=== PATIENT | female | born 1995 | race Caucasian/White ===

== ENCOUNTER 2017-08-13 12:08 | Emergency (ER) | payer SELFPAY ==
--- NOTE | 2017-08-13 12:36 | ER ---
Nurse's Notes [facility] Name: Karen Castle Age: 22 yrs Sex: Female : 1995 Arrival Date: 08/13/2017 Time: 12:10 Bed 9 Private MD: Diagnosis: Asthma;Bronchitis, not specified as acute or chronic Presentation: 08/13 12:15 Presenting complaint: Patient states: I feel congested, and the wheezing clears when i tw2 cough but i feel like i cant take a good breath and i feel sob, i have sinus congestion and pain. Transition of care: patient was not received from another setting of care. Onset of symptoms was August 13, 2017. Initial Sepsis Screen: Does the patient meet any 2 criteria? No. Patient's initial sepsis screen is negative. Does the patient have a suspected source of infection? No. Patient's initial sepsis screen is negative. Care prior to arrival: None. 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 - Social history:: Smoking status: Patient/guardian denies using tobacco. - Family history:: not pertinent. - Hospitalizations: : No recent hospitalization is reported. Screenin:28 Abuse screen: Denies threats or abuse. Denies injuries from another. Nutritional iw screening: No deficits noted. Tuberculosis screening: No symptoms or risk factors identified. Fall Risk. Assessment: 12:27 General: Appears in no apparent distress. Behavior is calm, cooperative. Pain: Denies iw pain. Neuro: Level of Consciousness is awake, alert, obeys commands, Oriented to person, place, time, situation, Moves all extremities. Full function. Cardiovascular: Rhythm is regular. Respiratory: Reports cough that is Airway is patent Respiratory effort is even, unlabored, Breath sounds are clear bilaterally. Derm: Skin is pink, warm \T\ dry. normal. Musculoskeletal: Range of motion: intact in all extremities. 12:29 Reassessment: pt states she ran out of her albuterol nebulizer and pro-air inhaler iw yesterday, needs refill, has not set up primary doctor in area. Vital Signs: 12:16 BP 118 / 78; Pulse 79; Resp 18; Temp 98.0(O); Pulse Ox 99% on R/A; Weight 77.11 kg (R); tw2 Height 5 ft. 3 in. (160.02 cm); Pain 0/10; 12:16 Body Mass Index 30.11 (77.11 kg, 160.02 cm) tw2 ED Course: 12:10 Patient arrived in ED. rg4 12:16 Triage completed. tw2 12:16 Arm band placed on. tw2 12:23 Yenni Manzano, [place] is Primary Nurse. iw 12:28 Andrea Mejia MD is Attending Physician. rn 12:28 Patient has correct armband on for positive identification. iw 12:29 No provider procedures requiring assistance completed. Patient did not have IV access iw during this emergency room visit. Administered Medications: No medications were administered Outcome: 12:36 Discharge ordered by . rn 12:50 Patient left the ED. iw Signatures: Yenni Manzano, RN RN iw Andrea Mejia MD MD rn Wise, Tara, RN RN tw2 Nayely Honeycutt rg4 Corrections: (The following items were deleted from the chart) 12:28 12:27 Musculoskeletal: Range of motion: limited in all extremities, iw iw
--- NOTE | 2017-08-13 12:36 | EDPHYS ---
Physician Documentation [facility] Name: Karen Castle Age: 22 yrs Sex: Female : 1995 Arrival Date: 08/13/2017 Time: 12:10 Bed 9 Private MD: ED Physician Andrea Mejia HPI: 08/13 12:33 This 22 yrs old Female presents to ER via Ambulatory with complaints of rn Breathing Difficulty. 12:33 The patient has shortness of breath at rest, with light activity. Onset: The rn symptoms/episode began/occurred 3 day(s) ago. Duration: The symptoms are intermittent. Associated signs and symptoms: Pertinent positives: non-productive cough, Pertinent negatives: fever, hemoptysis, loss of consciousness. Severity of symptoms: At their worst the symptoms were moderate in the emergency department the symptoms have improved. The patient has experienced similar episodes in the past. Reports just moved here, no PCP, + hx of asthma, + cough and sob, ran out of nebulizer medication and inhaler, helped a little but not gone, worse with exertion, no chest pain. . 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 - Social history:: Smoking status: Patient/guardian denies using tobacco. - Family history:: not pertinent. - Hospitalizations: : No recent hospitalization is reported. ROS: 12:33 Constitutional: Negative for fever, chills, and weight loss, Eyes: Negative for injury, rn pain, redness, and discharge, Neck: Negative for injury, pain, and swelling, Cardiovascular: Negative for chest pain, palpitations, and edema, Respiratory: Negative for pleuritic chest pain Abdomen/GI: Negative for abdominal pain, nausea, vomiting, diarrhea, and constipation, Back: Negative for injury and pain, MS/Extremity: Negative for injury and deformity, Skin: Negative for injury, rash, and discoloration, Neuro: Negative for headache, weakness, numbness, tingling, and seizure. Exam: 12:33 Constitutional: This is a well developed, well nourished patient who is awake, alert, rn and in no acute distress. Head/Face: Normocephalic, atraumatic. Eyes: Pupils equal round and reactive to light, extra-ocular motions intact. Lids and lashes normal. Conjunctiva and sclera are non-icteric and not injected. Cornea within normal limits. Periorbital areas with no swelling, redness, or edema. ENT: No stridor. Neck: Trachea midline, no thyromegaly or masses palpated, and no cervical lymphadenopathy. Supple, full range of motion without nuchal rigidity, or vertebral point tenderness. No Meningismus. Cardiovascular: Regular rate and rhythm with a normal S1 and S2. No gallops, murmurs, or rubs. Normal PMI, no JVD. No pulse deficits. Respiratory: Mild tachypnea, faint exp wheezing, speaking full sentences. Abdomen/GI: Soft, non-tender, with normal bowel sounds. No distension or tympany. No guarding or rebound. No evidence of tenderness throughout. Back: No spinal tenderness. No costovertebral tenderness. Full range of motion. MS/ Extremity: Pulses equal, no cyanosis. Neurovascular intact. Full, normal range of motion. Equal circumference. Neuro: Awake and alert, GCS 15, oriented to person, place, time, and situation. Cranial nerves II-XII grossly intact. Motor strength 5/5 in all extremities. Sensory grossly intact. Cerebellar exam normal. Normal gait. Vital Signs: 12:16 BP 118 / 78; Pulse 79; Resp 18; Temp 98.0(O); Pulse Ox 99% on R/A; Weight 77.11 kg (R); tw2 Height 5 ft. 3 in. (160.02 cm); Pain 0/10; 12:16 Body Mass Index 30.11 (77.11 kg, 160.02 cm) tw2 MDM: 12:28 Patient medically screened. rn 12:33 Differential diagnosis: asthma, Bronchitis. Data reviewed: vital signs, nurses notes, rn and as a result, I will discharge patient. Counseling: I had a detailed discussion with the patient and/or guardian regarding: the historical points, exam findings, and any diagnostic results supporting the discharge/admit diagnosis, the need for outpatient follow up, to return to the emergency department if symptoms worsen or persist or if there are any questions or concerns that arise at home. Special discussion: I discussed with the patient/guardian in detail that at this point there is no indication for admission to the hospital. It is understood, however, that if the symptoms persist or worsen the patient needs to return immediately for re-evaluation. Administered Medications: No medications were administered Disposition: 08/13/17 12:36 Discharged to Home. Impression: Asthma, Bronchitis, not specified as acute or chronic. - Condition is Stable. - Discharge Instructions: Acute Bronchitis, Asthma, Acute Bronchospasm. - Prescriptions for Prednisone 20 mg Oral Tablet - take 3 tablet by ORAL route once daily for 5 days; 15 tablet. Albuterol Sulfate 2.5 mg /3 mL (0.083 %) Inhalation Solution for Nebulization - inhale 1 unit by NEBULIZATION route every 8 hours As needed; 1 box. Zithromax Z- Pato 250 mg Oral Tablet - take 1 tablet by ORAL route as directed for 5 days Day 1 - take two (2) tablets one time. Day 2, 3, 4 , 5 take one (1) tablet once daily.; 6 tablet. Albuterol Sulfate 90 mcg/actuation - inhale 1-2 puff by INHALATION route every 4-6 hours; 1 Inhaler. - Medication Reconciliation Form, Thank You Letter, Antibiotic Education, Prescription Opioid Use form. - Follow up: Private Physician; When: As needed; Reason: Recheck today's complaints, Re-evaluation by your physician. - Problem is new. - Symptoms have improved. Signatures: Yenni Manzano RN RN iw Andrea Mejia MD MD rn Wise, Tara, RN RN tw2 Corrections: (The following items were deleted from the chart) 12:35 12:33 Constitutional: This is a well developed, well nourished patient who is awake, rn alert, and in no acute distress. Head/Face: Normocephalic, atraumatic. Eyes: Pupils equal round and reactive to light, extra-ocular motions intact. Lids and lashes normal. Conjunctiva and sclera are non-icteric and not injected. Cornea within normal limits. Periorbital areas with no swelling, redness, or edema. Neck: Trachea midline, no thyromegaly or masses palpated, and no cervical lymphadenopathy. Supple, full range of motion without nuchal rigidity, or vertebral point tenderness. No Meningismus. Cardiovascular: Regular rate and rhythm with a normal S1 and S2. No gallops, murmurs, or rubs. Normal PMI, no JVD. No pulse deficits. Respiratory: Mild tachypnea, faint exp wheezing, speaking full sentences. Abdomen/GI: Soft, non-tender, with normal bowel sounds. No distension or tympany. No guarding or rebound. No evidence of tenderness throughout. Back: No spinal tenderness. No costovertebral tenderness. Full range of motion. MS/ Extremity: Pulses equal, no cyanosis. Neurovascular intact. Full, normal range of motion. Equal circumference. Neuro: Awake and alert, GCS 15, oriented to person, place, time, and situation. Cranial nerves II-XII grossly intact. Motor strength 5/5 in all extremities. Sensory grossly intact. Cerebellar exam normal. Normal gait. rn
== END 2017-08-13 12:50 | disposition home or self-care (01) ==
LOC: ER 12:08
DX: J45.998 Other asthma (principal)
CPT/HCPCS: 99281

== ENCOUNTER 2017-09-19 12:38 | Emergency (ER) | payer SELFPAY ==
[2017-09-19] MEDS ORDERED: ALBUTEROL 2.5 MG/3 ML NEB SOL ONE (13:32)
[2017-09-19] MEDS ORDERED: IPRATROPIUM BROM 0.5MG/2.5ML ONE (13:32)
[2017-09-19] MEDS ORDERED: LIDOCAINE 1% MPF 2 ML AMPULE ONE (13:32)
[2017-09-19] MEDS ORDERED: TRIAMCINOLONE ACETON 40 MG/ML VIAL ONE (13:32)
--- NOTE | 2017-09-19 13:32 | ER ---
Nurse's Notes [facility] Name: Karen Castle Age: 22 yrs Sex: Female : 1995 Arrival Date: 09/19/2017 Time: 12:40 Bed 30 Private MD: None, None Diagnosis: Acute maxillary sinusitis;Asthma Presentation: 09/19 12:51 Presenting complaint: Patient states: "I have chronic asthma and I have just not been aj able to manage it well. No matter how many times I use my inhalers I feel like I am just not taking deep enough breaths." Patient is not tachypneic in triage, clear speaking voice. Breath sounds are clear. Transition of care: patient was not received from another setting of care. Onset of symptoms was September 19, 2017. Care prior to arrival: None. 12:51 Method Of Arrival: Ambulatory aj 12:51 Acuity: MOHIT 4 aj 15:00 Risk Assessment: Do you want to hurt yourself or someone else? Patient reports no lk1 desire to harm self or others. Initial Sepsis Screen: Does the patient meet any 2 criteria? No. Patient's initial sepsis screen is negative. Does the patient have a suspected source of infection? No. Patient's initial sepsis screen is negative. Triage Assessment: 12:53 General: Appears in no apparent distress. comfortable, Behavior is calm, cooperative, aj appropriate for age. Pain: Denies pain. Respiratory: Reports shortness of breath Airway is patent Respiratory effort is even, unlabored, Respiratory pattern is regular, symmetrical, Onset: The symptoms/episode began/occurred gradually, the patient has mild shortness of breath. Derm: Skin is intact, is healthy with good turgor, Skin is pink, warm \\T\\ dry. normal. 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 - Social history:: Smoking status: Patient/guardian denies using tobacco. - Family history:: not pertinent. - Ebola Screening: : No symptoms or risks identified at this time. - Hospitalizations: : No recent hospitalization is reported. - History obtained from: mother. Screenin:58 Abuse screen: Denies threats or abuse. Denies injuries from another. Nutritional lk1 screening: No deficits noted. Tuberculosis screening: No symptoms or risk factors identified. Fall Risk None identified. Assessment: 14:00 General: Appears in no apparent distress. Behavior is calm, cooperative, appropriate lk1 for age. Pain: Denies pain. Neuro: Level of Consciousness is awake, alert, obeys commands, Oriented to person, place, time, situation. Cardiovascular: Heart tones S1 S2 present Capillary refill is brisk Patient's skin is warm and dry. Rhythm is regular. Respiratory: Airway is patent Respiratory effort is even, unlabored, Respiratory pattern is regular, symmetrical, Breath sounds are clear bilaterally. Breath sounds are diminished in right lower lobe. GI: No signs and/or symptoms were reported involving the gastrointestinal system. : No signs and/or symptoms were reported regarding the genitourinary system. EENT: No signs and/or symptoms were reported regarding the EENT system. Derm: No signs and/or symptoms reported regarding the dermatologic system. Musculoskeletal: No signs and/or symptoms reported regarding the musculoskeletal system. Vital Signs: 12:53 BP 130 / 90; Pulse 79; Resp 16; Temp 97.6; Pulse Ox 100% on R/A; Weight 77.11 kg; aj Height 5 ft. 3 in. (160.02 cm); 14:18 BP 111 / 89; Pulse 84; Resp 16; Pulse Ox 100% on Nebulizer Mask; lk1 12:53 Body Mass Index 30.11 (77.11 kg, 160.02 cm) ED Course: 12:40 Patient arrived in ED. mr 12:40 None, None is Private Physician. mr 12:52 Triage completed. aj 12:53 Arm band placed on left wrist. Patient placed in an exam room. aj 13:12 Veronica Solis, [place] is Primary Nurse. lk1 13:12 Rhonda Gilbert FNP is PHCP. ka 13:12 Bud Mcpherson MD is Attending Physician. ka 14:58 Patient has correct armband on for positive identification. Bed in low position. Call lk1 light in reach. 14:58 No provider procedures requiring assistance completed. Patient did not have IV access lk1 during this emergency room visit. Administered Medications: 14:10 Drug: DuoNeb (3:1) (2.5 mg - 0.5 mg) 3 ml Route: Nebulizer; lk1 14:55 Follow up: Response: No adverse reaction; Marked relief of symptoms lk1 14:12 Drug: Rocephin (cefTRIAXone) 1 grams Route: IM; Site: left gluteus; lk1 14:56 Follow up: Response: No adverse reaction; Marked relief of symptoms lk1 14:14 Drug: Kenalog 40 mg Route: IM; Site: right gluteus; lk1 14:55 Follow up: Response: No adverse reaction; Marked relief of symptoms lk1 Outcome: 13:31 Discharge ordered by . niko 14:59 Discharged to home ambulatory, with family. lk1 14:59 Condition: improved 14:59 Discharge instructions given to patient, family, Instructed on discharge instructions, follow up and referral plans. medication usage, safety practices, Demonstrated understanding of instructions, follow-up care, medications, Prescriptions given X 2. 15:01 Patient left the ED. lk1 Signatures: Josie Thompson, RN RN Rhonda Romano, Margi Brumfield Leah, RN RN lk1
--- NOTE | 2017-09-19 13:32 | EDPHYS ---
Physician Documentation [facility] Name: Karen Castle Age: 22 yrs Sex: Female : 1995 Arrival Date: 09/19/2017 Time: 12:40 Bed 30 Private MD: None, None ED Physician Bud Mcpherson HPI: 09/19 13:25 This 22 yrs old Female presents to ER via Ambulatory with complaints of kav Shortness Of Breath. 13:25 The patient presents with congestion. Onset: The symptoms/episode began/occurred 5 kav day(s) ago. Modifying factors: The symptoms are alleviated by nothing. the symptoms are aggravated by nothing. Associated signs and symptoms: The patient has no apparent associated signs or symptoms, Loss of consciousness: the patient experienced no loss of consciousness, Pertinent positives:. Severity of symptoms: At their worst the symptoms were moderate just prior to arrival. The patient has experienced a previous episode, approximately 1 years ago. The patient has not recently seen a physician. 13:27 pt presents with chief c/o acute onset of nasal congestion and sob. pmhx: asthma. home kav nebulizer and has been using albuterol nebs at home. pressure in maxillary sinus. reports nasal discharge with thick purulent drainage. 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 - Social history:: Smoking status: Patient/guardian denies using tobacco. - Family history:: not pertinent. - Ebola Screening: : No symptoms or risks identified at this time. - Hospitalizations: : No recent hospitalization is reported. - History obtained from: mother. ROS: 13:28 Constitutional: Negative for fever, chills, and weight loss, Eyes: Negative for injury, kav pain, redness, and discharge, Neck: Negative for injury, pain, and swelling, Cardiovascular: Negative for chest pain, palpitations, and edema, Abdomen/GI: Negative for abdominal pain, nausea, vomiting, diarrhea, and constipation, Back: Negative for injury and pain, : Negative for injury, bleeding, discharge, and swelling, MS/Extremity: Negative for injury and deformity, Skin: Negative for injury, rash, and discoloration, Neuro: Negative for headache, weakness, numbness, tingling, and seizure, Psych: Negative for depression, anxiety, suicide ideation, homicidal ideation, and hallucinations, Allergy/Immunology: Negative for hives, rash, and allergies, Endocrine: Negative for neck swelling, polydipsia, polyuria, polyphagia, and marked weight changes, Hematologic/Lymphatic: Negative for swollen nodes, abnormal bleeding, and unusual bruising. 13:28 ENT: Positive for nasal discharge, sinus congestion, sinus pain, Negative for drainage from ear(s), ear pain, tinnitus, rhinorrhea, sore throat, difficulty swallowing, difficulty handling secretions, hoarseness. 13:28 Respiratory: Positive for shortness of breath, on exertion. kav Exam: 13:28 Constitutional: This is a well developed, well nourished patient who is awake, alert, kav and in no acute distress. Head/Face: Normocephalic, atraumatic. 13:28 Eyes: Pupils equal round and reactive to light, extra-ocular motions intact. Lids and kav lashes normal. Conjunctiva and sclera are non-icteric and not injected. Cornea within normal limits. Periorbital areas with no swelling, redness, or edema. Neck: Trachea midline, no thyromegaly or masses palpated, and no cervical lymphadenopathy. Supple, full range of motion without nuchal rigidity, or vertebral point tenderness. No Meningismus. Chest/axilla: Normal chest wall appearance and motion. Nontender with no deformity. No lesions are appreciated. Cardiovascular: Regular rate and rhythm with a normal S1 and S2. No gallops, murmurs, or rubs. Normal PMI, no JVD. No pulse deficits. Abdomen/GI: Soft, non-tender, with normal bowel sounds. No distension or tympany. No guarding or rebound. No evidence of tenderness throughout. Back: No spinal tenderness. No costovertebral tenderness. Full range of motion. Skin: Warm, dry with normal turgor. Normal color with no rashes, no lesions, and no evidence of cellulitis. MS/ Extremity: Pulses equal, no cyanosis. Neurovascular intact. Full, normal range of motion. Neuro: Awake and alert, GCS 15, oriented to person, place, time, and situation. Cranial nerves II-XII grossly intact. Motor strength 5/5 in all extremities. Sensory grossly intact. Cerebellar exam normal. Normal gait. Psych: Awake, alert, with orientation to person, place and time. Behavior, mood, and affect are within normal limits. 13:28 ENT: Nose: Turbinates: are swollen bilaterally. 13:28 Respiratory: the patient does not display signs of respiratory distress, Respirations: normal, no acute changes, Breath sounds: decreased breath sounds, that are mild, are located in both bases. Vital Signs: 12:53 BP 130 / 90; Pulse 79; Resp 16; Temp 97.6; Pulse Ox 100% on R/A; Weight 77.11 kg; aj Height 5 ft. 3 in. (160.02 cm); 14:18 BP 111 / 89; Pulse 84; Resp 16; Pulse Ox 100% on Nebulizer Mask; lk1 12:53 Body Mass Index 30.11 (77.11 kg, 160.02 cm) MDM: 13:12 Medical screening is not applicable. [facility] 13:28 Data reviewed: vital signs, nurses notes. ka Administered Medications: 14:10 Drug: DuoNeb (3:1) (2.5 mg - 0.5 mg) 3 ml Route: Nebulizer; lk1 14:55 Follow up: Response: No adverse reaction; Marked relief of symptoms lk1 14:12 Drug: Rocephin (cefTRIAXone) 1 grams Route: IM; Site: left gluteus; lk1 14:56 Follow up: Response: No adverse reaction; Marked relief of symptoms lk1 14:14 Drug: Kenalog 40 mg Route: IM; Site: right gluteus; lk1 14:55 Follow up: Response: No adverse reaction; Marked relief of symptoms lk1 Disposition: 22:10 Co-signature as Attending Physician, Bud Mcpherson MD I agree with the assessment and kdr plan of care. Disposition: 09/19/17 13:31 Discharged to Home. Impression: Acute maxillary sinusitis, Asthma. - Condition is Stable. - Discharge Instructions: Sinusitis, Adult. - Prescriptions for Ventolin HFA 90 mcg/actuation Inhalation HFA aerosol inhaler - inhale 1 puff by INHALATION route every 4 hours; 1 unit. Albuterol Sulfate 2.5 mg /3 mL (0.083 %) Inhalation Solution for Nebulization - inhale 1 unit by NEBULIZATION route every 8 hours As needed; 1 box. - Medication Reconciliation Form, Thank You Letter, Antibiotic Education, Prescription Opioid Use form. - Follow up: Private Physician; When: 2 - 3 days; Reason: If symptoms return, Recheck today's complaints, Continuance of care, Re-evaluation by your physician. - Problem is new. - Symptoms have improved. - Notes: zyrtec d as directed afrin nasal spray as directed x 3 days only Signatures: Josie Thompson, RN RN Bud Trejo MD MD kdr Vern, Katherine, FNP FNP kav Kluge, Leah, RN RN lk1 Corrections: (The following items were deleted from the chart) 15:01 13:31 09/19/2017 13:31 Discharged to Home. Impression: Acute maxillary sinusitis; lk1 Asthma. Condition is Stable. Forms are Medication Reconciliation Form, Thank You Letter, Antibiotic Education, Prescription Opioid Use. Follow up: Private Physician; When: 2 - 3 days; Reason: If symptoms return, Recheck today's complaints, Continuance of care, Re-evaluation by your physician. Problem is new. Symptoms have improved. niko
[2017-09-19] MEDS ORDERED: CEFTRIAXONE 1000 MG/VIAL ONE (13:33)
== END 2017-09-19 15:01 | disposition home or self-care (01) ==
LOC: ER 12:38
DX: J01.00 Acute maxillary sinusitis, unspecified (principal); J45.909 Unspecified asthma, uncomplicated
CPT/HCPCS: 94640; 96372; 99284; J2001; J3301

== ENCOUNTER 2017-10-11 15:03 | Emergency (ER) | payer SELFPAY ==
[2017-10-11 15:59] LABS: Absolute Lymphocytes (CBC) 0.9 K/uL (0.7-4.9); Absolute Monocytes 0.7 K/uL (0.1-1.3); Absolute Neutrophil 12.6 K/uL (1.8-8.0); Basophils % 0.1 % (0-1.3); Eosinophils % 0.3 % (0-4.4); Hematocrit 46.1 % (36.0-45.0); Lymphocytes % 6.2 % (15.3-44.8); MCH 30.9 pg (27.0-35.0); MPV 8.8 fL (7.6-11.3); Monocytes % 4.6 % (3.3-12.3); RBC Red Blood Cell Count 4.96 M/uL (3.86-4.86)
[2017-10-11] MEDS ORDERED: FAMOTIDINE 20 MG/2 ML VIAL IV ONE (16:03)
[2017-10-11] MEDS ORDERED: ONDANSETRON 4 MG/2 ML VIAL ONE (16:03)
[2017-10-11] MEDS ORDERED: NA CHLORIDE 0.9% 2,000 ML ONE (16:03)
[2017-10-11] MEDS ORDERED: NA CHLORIDE 0.9% 250 ML ONE (16:18)
[2017-10-11 16:22] LABS: Blood Morphology Comment NOT SEEN (NOT SEEN); Platelet Estimate ADEQ; Urine White Blood Cell Casts OK
[2017-10-11 16:25] LABS: ALT/SGPT 17 U/L (12-78); AST/SGOT 15 U/L (15-37); Albumin 3.7 g/dL (3.4-5.0); Alkaline Phosphatase 71 U/L (45-117); Amylase Level 27 U/L (25-115); BUN Blood Urea Nitrogen 12 mg/dL (7-18); Bicarbonate 26 mmol/L (21-32); Bilirubin Direct 0.2 mg/dL (0-0.2); Bilirubin Total 0.7 mg/dL (0.2-1.0); Glucose Level 103 mg/dL (74-106); Lipase 54 U/L (73-393); Protein, Total 8.1 g/dL (6.4-8.2); Sodium Level 134 mmol/L (136-145)
[2017-10-11] MEDS ORDERED: POTASSIUM 25 MEQ EFFERV TAB ONE (17:04)
[2017-10-11 17:22] LABS: Urine Bacteria >50 /HPF (<20); Urine Culture Reflex Order REFLEXED; Urine RBC <5 /HPF (NONE SEEN)
--- NOTE | 2017-10-11 17:30 | EKG ---
Test Date: 2017-10-11 Test Time: 16:37:41 Cerner Analyst: ANIL MEASUREMENT RESULTS: Intervals: Rate: 85 RI: 132 QRSD: 80 QT: 352 QTc: 418 [place]: P: 56 RI: 132 QRS: 0 T: -5 INTERPRETIVE STATEMENTS: Normal sinus rhythm Nonspecific T wave abnormality Abnormal ECG No previous ECG available for comparison Electronically Signed On 10-11-17 17:30:01 CDT by Braayn Lara
[2017-10-11 17:33] LABS: Urine Blood TRACE (NEG); Urine Glucose NEGATIVE (NEG); Urine Protein TRACE (NEG); Urine Specific Gravity 1.025 (1.005-1.030); Urine pH 5.5 (5.0-7.0)
[2017-10-11] MEDS ORDERED: ACETAMINOPHEN 500 MG TAB ONE (18:05)
[2017-10-11] MEDS ORDERED: METOCLOPRAMIDE 10 MG/2mL INJ ONE (18:05)
[2017-10-11] MEDS ORDERED: CEFTRIAXONE/SWI 1gm 1 GM/10 ML SYR ONE (18:06)
--- NOTE | 2017-10-11 18:21 | ER ---
Nurse's Notes [facility] Name: Karen Castle Age: 22 yrs Sex: Female : 1995 Arrival Date: 10/11/2017 Time: 15:05 Bed 23 Private MD: None, None Diagnosis: Nausea and vomiting;Diarrhea, unspecified;Urinary tract infection, site not specified Presentation: 10/11 15:07 Presenting complaint: Patient states: vomiting/diarrhea x 1 day. Unable to keep fluids sv down. Transition of care: patient was not received from another setting of care. Onset of symptoms was October 10, 2017. Risk Assessment: Do you want to hurt yourself or someone else? Patient reports no desire to harm self or others. Care prior to arrival: None. 15:07 Method Of Arrival: Ambulatory sv 15:07 Acuity: MOHIT 3 sv 19:23 Initial Sepsis Screen: Does the patient meet any 2 criteria? No. Patient's initial tl3 sepsis screen is negative. Does the patient have a suspected source of infection? No. Patient's initial sepsis screen is negative. Triage Assessment: 19:23 GI: Reports vomiting. 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 - Social history:: Smoking status: Patient/guardian denies using tobacco. - Ebola Screening: : No symptoms or risks identified at this time. Screenin:36 Abuse screen: Denies threats or abuse. Nutritional screening: No deficits noted. tl3 Tuberculosis screening: No symptoms or risk factors identified. Fall Risk None identified. Assessment: 15:36 General: Appears uncomfortable, slender, well groomed, well developed, well nourished, tl3 Behavior is calm, cooperative, appropriate for age. Pain: Complains of pain in abdomen. Neuro: Level of Consciousness is awake, alert, obeys commands, Oriented to person, place, time, situation, Appropriate for age. Cardiovascular: Patient's skin is warm and dry. Respiratory: Airway is patent Respiratory effort is even, unlabored, Respiratory pattern is regular, symmetrical. GI: Abdomen is round. : No signs and/or symptoms were reported regarding the genitourinary system. EENT: No signs and/or symptoms were reported regarding the EENT system. Derm: No signs and/or symptoms reported regarding the dermatologic system. Musculoskeletal: No signs and/or symptoms reported regarding the musculoskeletal system. 16:40 Reassessment: No changes from previously documented assessment. Patient and/or family tl3 updated on plan of care and expected duration. Pain level reassessed. Patient is alert, oriented x 3, equal unlabored respirations, skin warm/dry/pink. 18:00 Reassessment: Patient appears in no apparent distress at this time. No changes from tl3 previously documented assessment. Patient and/or family updated on plan of care and expected duration. Pain level reassessed. Patient is alert, oriented x 3, equal unlabored respirations, skin warm/dry/pink. pt fluids to infuse prior to discharge. 19:17 Reassessment: No changes from previously documented assessment. Patient and/or family tl3 updated on plan of care and expected duration. Pain level reassessed. Patient is alert, oriented x 3, equal unlabored respirations, skin warm/dry/pink. Vital Signs: 15:08 BP 122 / 105; Pulse 130; Resp 18; Temp 99.7; Pulse Ox 97% ; Weight 77.11 kg; Height 5 sv ft. 3 in. (160.02 cm); Pain 6/10; 15:36 BP 111 / 72; Pulse 112; Resp 16; Pulse Ox 96% ; tl3 18:00 BP 118 / 76; Pulse 103; Resp 16; Pulse Ox 100% ; tl3 19:17 BP 105 / 67; Pulse 86; Resp 18; Pulse Ox 99% ; tl3 15:08 Body Mass Index 30.11 (77.11 kg, 160.02 cm) sv ED Course: 15:05 Patient arrived in ED. mr 15:05 None, None is Private Physician. mr 15:07 Triage completed. sv 15:09 Arm band placed on right wrist. sv 15:19 Jerald Restrepo PA is PHCP. cp 15:19 Andrea Mejia MD is Attending Physician. cp 15:19 Roxana Juan, RN is Primary Nurse. tl3 15:36 Patient has correct armband on for positive identification. Placed in gown. Bed in low tl3 position. Call light in reach. Side rails up X 1. Adult w/ patient. Pulse ox on. NIBP on. 15:36 No provider procedures requiring assistance completed. Inserted saline lock: 22 gauge tl3 in right antecubital area, using aseptic technique. Blood collected. 15:54 Initial lab(s) drawn, by ED staff, sent to lab. dh3 16:43 EKG done, by certified pharmacy technician. reviewed by Jerald SPRING. 3 17:12 Urine collected: clean catch specimen, benjamín colored. dh3 19:17 IV discontinued, intact, bleeding controlled, No redness/swelling at site. Pressure tl3 dressing applied. Administered Medications: 16:28 Drug: NS 0.9% 1000 ml Route: IV; Rate: 125 ml/hr; Site: right antecubital; Delivery: tl3 Primary tubing; 19:19 Follow up: IV Status: Completed infusion; IV Intake: 300ml tl3 16:29 Drug: Zofran 4 mg Route: IVP; Site: right antecubital; tl3 16:58 Follow up: Response: No adverse reaction; Nausea is decreased tl3 16:29 Drug: Pepcid 20 mg Route: IVP; Site: right antecubital; tl3 16:58 Follow up: Response: No adverse reaction tl3 16:29 Drug: NS 0.9% 1000 ml Route: IV; Rate: 1 bolus; Site: right antecubital; tl3 19:23 Follow up: IV Status: Completed infusion; IV Intake: 1000ml tl3 17:07 CANCELLED (Duplicate Order): Potassium Chloride 40 mEq PO once tl3 17:07 Drug: Potassium Effervescent Tablet 50 mEq Route: PO; tl3 19:19 Follow up: Response: No adverse reaction tl3 18:12 Drug: Reglan 10 mg Route: IVP; Infused Over: 2 mins; Site: right antecubital; tl3 19:18 Follow up: Response: No adverse reaction tl3 18:12 Drug: Rocephin - (cefTRIAXone) 1 grams Route: IVPB; Infused Over: 5 mins; Site: right tl3 antecubital; Delivery: Primary tubing; 19:18 Follow up: IV Status: Completed infusion; IV Intake: 20ml tl3 18:13 Drug: Tylenol 1000 mg Route: PO; tl3 19:21 Follow up: Response: Pain is decreased tl3 18:13 Drug: NS 0.9% 1000 ml Route: IV; Rate: 1 bolus; Site: right antecubital; Delivery: tl3 Primary tubing; 19:18 Follow up: IV Status: Completed infusion; IV Intake: 1000ml tl3 Intake: 19:18 IV: 20ml; Total: 20ml. tl3 19:18 IV: 1000ml; Total: 1020ml. tl3 19:19 IV: 300ml; Total: 1320ml. tl3 19:23 IV: 1000ml; Total: 2320ml. tl3 Outcome: 18:20 Discharge ordered by . karla 19:17 Discharged to home tl3 19:17 Condition: good 19:17 Discharge instructions given to patient, family, Instructed on discharge instructions, follow up and referral plans. medication usage, Demonstrated understanding of instructions, follow-up care, medications, Prescriptions given X 2. 19:22 Patient left the ED. tl3 Signatures: Roxane Crow, RN RN Margi Rodríguez mr Jerald Restrepo, CLEMENTINE PA Janna Heath 3 Roxana Juan RN RN 3 Megan Mendoza 3 Corrections: (The following items were deleted from the chart) 15:10 15:08 BP 122 / 105; Pulse 130bpm; Resp 18bpm; Pulse Ox 97%; 77.11 kg; Height 5 ft. 3 sv in.; BMI: 30.1; Pain 6/10; sv 17:06 17:06 Potassium Chloride 40 mEq PO tl3 tl3 19:17 18:00 Reassessment: Patient appears in no apparent distress at this time. No changes tl3 from previously documented assessment. Patient and/or family updated on plan of care and expected duration. Pain level reassessed. Patient is alert, oriented x 3, equal unlabored respirations, skin warm/dry/pink. tl3
--- NOTE | 2017-10-11 18:21 | EDPHYS ---
Physician Documentation [facility] Name: Karen Castle Age: 22 yrs Sex: Female : 1995 Arrival Date: 10/11/2017 Time: 15:05 Bed 23 Private MD: None, None ED Physician Andrea Mejia HPI: 10/11 15:50 This 22 yrs old Female presents to ER via Ambulatory with complaints of cp Vomiting/Diarrhea. 15:50 The patient presents to the emergency department with nausea, that is moderate, cp vomiting, that is continuous, diarrhea, that is continuous. 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 - Social history:: Smoking status: Patient/guardian denies using tobacco. - Ebola Screening: : No symptoms or risks identified at this time. ROS: 16:00 Constitutional: Positive for poor PO intake, Negative for body aches, chills, fever. cp 16:00 Eyes: Negative for injury, pain, redness, and discharge. cp 16:00 ENT: Negative for drainage from ear(s), ear pain, sore throat, difficulty swallowing, difficulty handling secretions. 16:00 Cardiovascular: Negative for chest pain, edema, palpitations. 16:00 Respiratory: Negative for cough, shortness of breath, wheezing. 16:00 Abdomen/GI: Positive for abdominal pain, nausea, vomiting, diarrhea, Negative for constipation, black/tarry stool, rectal bleeding. 16:00 Back: Negative for pain at rest, pain with movement, radiated pain. 16:00 : Negative for flank pain. 16:00 Skin: Negative for cellulitis, rash. 16:00 Neuro: Negative for altered mental status, headache, weakness. 16:00 All other systems are negative. Exam: 16:05 Constitutional: The patient appears in no acute distress, alert, awake, cp non-diaphoretic, non-toxic, well developed, well nourished. 16:05 Head/Face: Normocephalic, atraumatic. Eyes: Pupils equal round and reactive to light, cp extra-ocular motions intact. Lids and lashes normal. Conjunctiva and sclera are non-icteric and not injected. Cornea within normal limits. Periorbital areas with no swelling, redness, or edema. ENT: Nares patent. No nasal discharge, no septal abnormalities noted. Tympanic membranes are normal and external auditory canals are clear. Oropharynx with no redness, swelling, or masses, exudates, or evidence of obstruction, uvula midline. Mucous membranes moist. Neck: Trachea midline, no thyromegaly or masses palpated, and no cervical lymphadenopathy. Supple, full range of motion without nuchal rigidity, or vertebral point tenderness. No Meningismus. Chest/axilla: Normal chest wall appearance and motion. Nontender with no deformity. No lesions are appreciated. 16:05 Cardiovascular: Rate: tachycardic, Rhythm: regular, Heart sounds: murmur, not appreciated, rub, not appreciated, gallop, not appreciated, Edema: is not appreciated, JVD: is not appreciated. 16:05 Respiratory: the patient does not display signs of respiratory distress, Respirations: normal, no use of accessory muscles, no retractions, no splinting, no tachypnea, labored breathing, is not present, Breath sounds: are clear throughout, no decreased breath sounds, no stridor, no wheezing. 16:05 Abdomen/GI: Inspection: abdomen appears normal, Bowel sounds: active, all quadrants, Palpation: soft, in all quadrants, mild abdominal tenderness, in all quadrants, rebound tenderness, is not appreciated, voluntary guarding, is not appreciated, involuntary guarding, is not appreciated. 16:05 Back: pain, is absent, ROM is normal. 16:05 Musculoskeletal/extremity: Exam is negative for calf tenderness, decreased range of motion, edema. 16:05 Skin: cellulitis, is not appreciated, no rash present. 16:05 Neuro: Orientation: to person, place \T\ time. Mentation: lucid, able to follow commands, Motor: moves all fours, strength is normal, Sensation: no obvious gross deficits. 16:45 ECG was reviewed by the Attending Physician. cp Vital Signs: 15:08 BP 122 / 105; Pulse 130; Resp 18; Temp 99.7; Pulse Ox 97% ; Weight 77.11 kg; Height 5 sv ft. 3 in. (160.02 cm); Pain 6/10; 15:36 BP 111 / 72; Pulse 112; Resp 16; Pulse Ox 96% ; tl3 18:00 BP 118 / 76; Pulse 103; Resp 16; Pulse Ox 100% ; tl3 19:17 BP 105 / 67; Pulse 86; Resp 18; Pulse Ox 99% ; tl3 15:08 Body Mass Index 30.11 (77.11 kg, 160.02 cm) sv MDM: 15:19 Patient medically screened. cp 18:18 Data reviewed: vital signs, nurses notes, lab test result(s), EKG, VSS. Vomiting cp resolved and patient tolerating po fluids. Will discharge to home for continued monitroing, and as a result, I will discharge patient. 10/11 15:44 Order name: Amylase, Serum; Complete Time: 16:28 cp 10/11 15:44 Order name: Basic Metabolic Panel; Complete Time: 16:28 cp 10/11 16:28 Interpretation: Normal except: NA 134; K 3.0. cp 10/11 15:44 Order name: CBC with Diff; Complete Time: 16:28 cp 10/11 16:07 Interpretation: Normal except: WBC 14.2; RBC 4.96; HGB 15.3; HCT 46.1; ROCK% 88.8; LYM% cp 6.2; NEUT A 12.6. 10/11 15:44 Order name: Creatinine for Radiology; Complete Time: 17:44 cp 10/11 15:44 Order name: Hepatic Function; Complete Time: 16:28 cp 10/11 16:29 Interpretation: Normal except: GLOB 4.4; A/G 0.8. cp 10/11 15:44 Order name: Lipase; Complete Time: 16:28 cp 10/11 16:28 Interpretation: LIP 54; Reviewed. cp 10/11 15:44 Order name: Urine Microscopic Only; Complete Time: 17:44 cp 10/11 17:45 Interpretation: Normal except: UBACT >50. cp 10/11 16:02 Order name: CBC Smear Scan; Complete Time: 16:28 EDMS 10/11 17:23 Order name: Urine Culture EDMS 10/11 17:29 Order name: Urine Dipstick--Ancillary (enter results); Complete Time: 17:44 bd 10/11 17:45 Interpretation: Normal except: UBLD TRACE. cp 10/11 17:29 Order name: Urine --Ancillary (enter results); Complete Time: 17:44 bd 10/11 15:44 Order name: Urine Test (obtain specimen); Complete Time: 17:13 cp 10/11 15:44 Order name: IV Saline Lock; Complete Time: 16:57 cp 10/11 15:44 Order name: Labs collected and sent; Complete Time: 16:57 cp 10/11 15:44 Order name: Urine Dipstick-Ancillary (obtain specimen); Complete Time: 17:13 cp 10/11 16:29 Order name: PO challenge; Complete Time: 17:06 cp 10/11 16:30 Order name: EKG; Complete Time: 16:30 cp 10/11 16:30 Order name: EKG - Nurse/Tech; Complete Time: 16:59 cp EC:45 Rate is 85 beats/min. Rhythm is regular. AK interval is normal. QRS interval is normal. cp QT interval is normal. No ST changes noted. Interpreted by me. Reviewed by me. Administered Medications: 16:28 Drug: NS 0.9% 1000 ml Route: IV; Rate: 125 ml/hr; Site: right antecubital; Delivery: tl3 Primary tubing; 19:19 Follow up: IV Status: Completed infusion; IV Intake: 300ml tl3 16:29 Drug: Zofran 4 mg Route: IVP; Site: right antecubital; tl3 16:58 Follow up: Response: No adverse reaction; Nausea is decreased tl3 16:29 Drug: Pepcid 20 mg Route: IVP; Site: right antecubital; tl3 16:58 Follow up: Response: No adverse reaction tl3 16:29 Drug: NS 0.9% 1000 ml Route: IV; Rate: 1 bolus; Site: right antecubital; tl3 19:23 Follow up: IV Status: Completed infusion; IV Intake: 1000ml tl3 17:07 CANCELLED (Duplicate Order): Potassium Chloride 40 mEq PO once tl3 17:07 Drug: Potassium Effervescent Tablet 50 mEq Route: PO; tl3 19:19 Follow up: Response: No adverse reaction tl3 18:12 Drug: Reglan 10 mg Route: IVP; Infused Over: 2 mins; Site: right antecubital; tl3 19:18 Follow up: Response: No adverse reaction tl3 18:12 Drug: Rocephin - (cefTRIAXone) 1 grams Route: IVPB; Infused Over: 5 mins; Site: right tl3 antecubital; Delivery: Primary tubing; 19:18 Follow up: IV Status: Completed infusion; IV Intake: 20ml tl3 18:13 Drug: Tylenol 1000 mg Route: PO; tl3 19:21 Follow up: Response: Pain is decreased tl3 18:13 Drug: NS 0.9% 1000 ml Route: IV; Rate: 1 bolus; Site: right antecubital; Delivery: tl3 Primary tubing; 19:18 Follow up: IV Status: Completed infusion; IV Intake: 1000ml tl3 Disposition: 10/11/17 18:20 Discharged to Home. Impression: Nausea and vomiting, Diarrhea, unspecified, Urinary tract infection, site not specified. - Condition is Stable. - Discharge Instructions: Food Choices to Help Relieve Diarrhea, Adult, Potassium Content of Foods, Nausea and Vomiting, Urinary Tract Infection. - Prescriptions for Augmentin 875- 125 mg Oral Tablet - take 1 tablet by ORAL route every 12 hours for 7 days; 14 tablet. Zofran 4 mg Oral Tablet - take 1 tablet by ORAL route every 12 hours As needed; 20 tablet. Potassium Chloride 10 mEq Oral Capsule, Sustained Release - take 1 tablet by ORAL route every 12 hours for 3 days; 6 tablet. - Medication Reconciliation Form, Thank You Letter, Antibiotic Education, Prescription Opioid Use form. - Follow up: Private Physician; When: 2 - 3 days; Reason: Recheck today's complaints. - Problem is new. - Symptoms have improved. Addendum: 10/14/2017 19:40 Co-signature as Attending Physician, Andrea Mejia MD. r n Signatures: Dispatcher [employer] Roxane Engle RN RN sv Nieto, Roman, MD MD rn Page, Corey, PA PA cp Lowrey, Tammy, RN RN tl3 Corrections: (The following items were deleted from the chart) 10/11 16:07 16:07 Normal except: WBC 14.2; RBC 4.96; HGB 15.3; HCT 46.1. cp cp 17:07 16:29 Potassium Chloride Liquid 40 mEq PO once ordered. cp tl3 17:07 17:06 Potassium Chloride Liquid 40 mEq PO once given. tl3 tl3 17:07 17:06 Potassium Chloride Liquid 40 mEq PO once ordered. tl3 tl3 19:22 18:20 10/11/2017 18:20 Discharged to Home. Impression: Nausea and vomiting; Diarrhea, tl3 unspecified; Urinary tract infection, site not specified. Condition is Stable. Forms are Medication Reconciliation Form, Thank You Letter, Antibiotic Education, Prescription Opioid Use. Follow up: Private Physician; When: 2 - 3 days; Reason: Recheck today's complaints. Problem is new. Symptoms have improved. cp
== END 2017-10-11 19:22 | disposition home or self-care (01) ==
LOC: ER 15:03
DX: N39.0 Urinary tract infection, site not specified (principal); R19.7 Diarrhea, unspecified; F32.9 Major depressive disorder, single episode, unspecified
CPT/HCPCS: 36415; 80048; 80076; 81003; 81015; 81025; 82150; 83690; 85025; 87086; 87088; 93005; 96361; 96365; 96375; 99284; J0696; J2405; J2765; J7030

== ENCOUNTER 2017-11-24 16:30 | Emergency (ER) | payer SELFPAY ==
--- NOTE | 2017-11-24 16:55 | EDPHYS ---
Physician Documentation [facility] Name: Karen Castle Age: 22 yrs Sex: Female : 1995 Arrival Date: 11/24/2017 Time: 16:32 Bed 23 Private MD: ED Physician Jerald Pendleton HPI: 11/24 16:52 This 22 yrs old Female presents to ER via Ambulatory with complaints of snw Cough, Congestion, Sinus Pain. 16:52 The patient or guardian reports airway noise, cough, described as moderate. Onset: The snw symptoms/episode began/occurred suddenly, 5 day(s) ago, and became worse and became persistent. Severity of symptoms: At their worst the symptoms were moderate, severe. Associated signs and symptoms: Pertinent positives: chest pain, sore throat, dizziness. The patient has experienced similar episodes in the past. It is unknown whether or not the patient has recently seen a physician. using albuterol q 2-3 hours. 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 - Social history:: Smoking status: Patient/guardian denies using tobacco. - Ebola Screening: : Patient denies travel to an Ebola-affected area in the 21 days before illness onset. ROS: 16:52 Constitutional: Negative for fever, chills, and weight loss, Eyes: Negative for injury, snw pain, redness, and discharge, ENT: Negative for injury, pain, and discharge, Neck: Negative for injury, pain, and swelling, Cardiovascular: Negative for chest pain, palpitations, and edema. 16:52 Abdomen/GI: Negative for abdominal pain, nausea, vomiting, diarrhea, and constipation, Back: Negative for injury and pain, : Negative for injury, bleeding, discharge, and swelling, MS/Extremity: Negative for injury and deformity, Skin: Negative for injury, rash, and discoloration. 16:52 Respiratory: Positive for cough, shortness of breath, wheezing. 16:52 Neuro: Positive for dizziness. Exam: 16:50 Constitutional: This is a well developed, well nourished patient who is awake, alert, snw and in no acute distress. 16:50 Eyes: Pupils equal round and reactive to light, extra-ocular motions intact. Lids and lashes normal. Conjunctiva and sclera are non-icteric and not injected. Cornea within normal limits. Periorbital areas with no swelling, redness, or edema. Neck: Trachea midline, no thyromegaly or masses palpated, and no cervical lymphadenopathy. Supple, full range of motion without nuchal rigidity, or vertebral point tenderness. No Meningismus. Chest/axilla: Normal chest wall appearance and motion. Nontender with no deformity. No lesions are appreciated. Cardiovascular: Regular rate and rhythm with a normal S1 and S2. No gallops, murmurs, or rubs. Normal PMI, no JVD. No pulse deficits. Abdomen/GI: Soft, non-tender, with normal bowel sounds. No distension or tympany. No guarding or rebound. No evidence of tenderness throughout. Back: No spinal tenderness. No costovertebral tenderness. Full range of motion. Skin: Warm, dry with normal turgor. Normal color with no rashes, no lesions, and no evidence of cellulitis. MS/ Extremity: Pulses equal, no cyanosis. Neurovascular intact. Full, normal range of motion. Neuro: Awake and alert, GCS 15, oriented to person, place, time, and situation. Cranial nerves II-XII grossly intact. Motor strength 5/5 in all extremities. Sensory grossly intact. Cerebellar exam normal. Normal gait. Psych: Awake, alert, with orientation to person, place and time. Behavior, mood, and affect are within normal limits. 16:50 Head/face: Noted is swelling, that is mild, of the nose. 16:50 ENT: External ear(s): are unremarkable, Ear canal(s): are normal, TM's: erythema, that is moderate, on the left, Nose: Nasal mucosa: edematous, Mouth: is normal, Posterior pharynx: is normal, Dental exam: normal, Voice: is normal. 16:50 Respiratory: the patient does not display signs of respiratory distress, Respirations: normal, Breath sounds: wheezing: that is moderate, is heard diffusely. Vital Signs: 16:39 BP 132 / 84; Pulse 79; Resp 18; Temp 98.3; Pulse Ox 99% on R/A; Weight 81.65 kg (R); aj1 Height 5 ft. 3 in. (160.02 cm) (R); Pain 0/10; 16:39 Body Mass Index 31.89 (81.65 kg, 160.02 cm) aj1 MDM: 16:42 Patient medically screened. snw 16:57 Data reviewed:. Data interpreted: Pulse oximetry: on room air is 99 %. Interpretation: snw normal. Counseling: I had a detailed discussion with the patient and/or guardian regarding: the historical points, exam findings, and any diagnostic results supporting the discharge/admit diagnosis, the presence of at least one elevated blood pressure reading (>120/80) during this emergency department visit, the need for outpatient follow up, to return to the emergency department if symptoms worsen or persist or if there are any questions or concerns that arise at home. Special discussion: Based on the history and exam findings, there is no indication for further emergent testing or inpatient evaluation. I discussed with the patient/guardian the need to see the primary care provider for further evaluation of the symptoms. Administered Medications: No medications were administered Disposition: 11/25 14:33 Co-signature as Attending Physician, Jerald Pendleton MD I agree with the assessment and patricia plan of care. Disposition: 18 16:54 Discharged to Home. Impression: Acute upper respiratory infection, unspecified, Unspecified asthma with (acute) exacerbation, Acute suppurative otitis media. - Condition is Stable. - Discharge Instructions: Asthma, Adult, Otitis Media, Adult, Upper Respiratory Infection, Adult, Cool Mist Vaporizer, Form - Asthma Action Plan, Adult, Rehydration, Adult. - Prescriptions for Zyrtec 10 mg Oral Tablet - take 1 tablet by ORAL route once daily As needed; 20 tablet. Albuterol Sulfate 2.5 mg /3 mL (0.083 %) Inhalation Solution for Nebulization - inhale 1 unit by NEBULIZATION route every 8 hours As needed; 1 box. Prednisone 20 mg Oral Tablet - take 2 tablet by ORAL route once daily for 5 days; 10 tablet. Albuterol Sulfate 90 mcg/actuation - inhale 1-2 puff by INHALATION route every 4-6 hours; 1 Inhaler. Zithromax 500 mg Oral Tablet - take 1 tablet by ORAL route once daily for 5 days; 5 tablet. - Work release form, Medication Reconciliation Form, Thank You Letter, Antibiotic Education, Prescription Opioid Use form. - Follow up: Private Physician; When: 2 - 3 days; Reason: Recheck today's complaints, Continuance of care, Re-evaluation by your physician. Follow up: Emergency Department; When: As needed; Reason: Trouble breathing, Worsening of condition. Signatures: Akosua Rodriguez RN RN Cece Colunga RN RN aj1 Jerald Pendleton MD MD cha Therrien, Shelly, CREDIT SUPPORT SPECIALIST-C CREDIT SUPPORT SPECIALIST-Csnw Corrections: (The following items were deleted from the chart) 11/24 17:11 16:54 11/24/2017 16:54 Discharged to Home. Impression: Acute upper respiratory ch infection, unspecified; Unspecified asthma with (acute) exacerbation; Acute suppurative otitis media. Condition is Stable. Forms are Medication Reconciliation Form, Thank You Letter, Antibiotic Education, Prescription Opioid Use. Follow up: Private Physician; When: 2 - 3 days; Reason: Recheck today's complaints, Continuance of care, Re-evaluation by your physician. Follow up: Emergency Department; When: As needed; Reason: Trouble breathing, Worsening of condition. snw
--- NOTE | 2017-11-24 16:55 | ER ---
Nurse's Notes [facility] Name: Karen Castle Age: 22 yrs Sex: Female : 1995 Arrival Date: 11/24/2017 Time: 16:32 Bed 23 Private MD: Diagnosis: Acute upper respiratory infection, unspecified;Unspecified asthma with (acute) exacerbation;Acute suppurative otitis media Presentation: 11/24 16:36 Presenting complaint: Patient states: "General tightness in my chest. I have asthma, aj1 but the nebulizer isn't helping much. I'm coughing up a little bit of phlegm. I've had bronchitis 3 time since I came here so I wasn't sure if it came back." Denies fever. Reports SOB, productive cough, sinus pressure and nasal congestion. Transition of care: patient was not received from another setting of care. Onset of symptoms was November 18, 2017. Risk Assessment: Do you want to hurt yourself or someone else? Patient reports no desire to harm self or others. Initial Sepsis Screen: Does the patient meet any 2 criteria? No. Patient's initial sepsis screen is negative. Does the patient have a suspected source of infection? No. Patient's initial sepsis screen is negative. Care prior to arrival: None. 16:36 Method Of Arrival: Ambulatory aj 16:36 Acuity: MOHIT 4 aj1 Triage Assessment: 16:39 General: Appears in no apparent distress. comfortable, Behavior is calm, cooperative, aj1 appropriate for age. Pain: Denies pain. EENT: Reports nasal congestion nasal discharge sinus pain. Neuro: Level of Consciousness is awake, alert, obeys commands. Cardiovascular: Patient's skin is warm and dry. Respiratory: Airway is patent Respiratory effort is even, unlabored, Respiratory pattern is regular, symmetrical. 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 - Social history:: Smoking status: Patient/guardian denies using tobacco. - Ebola Screening: : Patient denies travel to an Ebola-affected area in the 21 days before illness onset. Screenin:08 Abuse screen: Denies threats or abuse. Denies injuries from another. Nutritional ch screening: No deficits noted. Tuberculosis screening: No symptoms or risk factors identified. Fall Risk None identified. Assessment: 17:08 Reassessment: Patient appears in no apparent distress at this time. Patient and/or ch family updated on plan of care and expected duration. Pain level reassessed. Patient is alert, oriented x 3, equal unlabored respirations, skin warm/dry/pink. General: Appears in no apparent distress. comfortable. Cardiovascular: No deficits noted. Cardiovascular: Heart tones S1 S2 present. Respiratory: Reports shortness of breath cough that is "asthma acting up" Breath sounds are coarse bilaterally. GI: No signs and/or symptoms were reported involving the gastrointestinal system. Derm: Skin is pink, warm \\T\\ dry. Vital Signs: 16:39 BP 132 / 84; Pulse 79; Resp 18; Temp 98.3; Pulse Ox 99% on R/A; Weight 81.65 kg (R); aj1 Height 5 ft. 3 in. (160.02 cm) (R); Pain 0/10; 16:39 Body Mass Index 31.89 (81.65 kg, 160.02 cm) aj1 ED Course: 16:32 Patient arrived in ED. rg4 16:38 Triage completed. aj1 16:39 Arm band placed on Patient placed in an exam room. aj1 16:42 Janine Givens FNP-C is PSYCHIATRICP. snw 16:42 Jerald Pendleton MD is Attending Physician. snw 17:08 Akosua Rodriguez, [place] is Primary Nurse. ch 17:08 No apparent distress. Resting quietly. ch 17:08 Patient has correct armband on for positive identification. Placed in gown. Bed in low ch position. Call light in reach. Side rails up X 1. Adult w/ patient. 17:08 No provider procedures requiring assistance completed. Patient did not have IV access ch during this emergency room visit. Administered Medications: No medications were administered Outcome: 16:54 Discharge ordered by . snw 17:08 Discharged to home ambulatory, with family. ch 17:08 Condition: stable 17:08 Discharge instructions given to patient, family, Instructed on discharge instructions, follow up and referral plans. medication usage, Demonstrated understanding of instructions, follow-up care, medications, Prescriptions given X 5 17:11 Patient left the ED. Signatures: Akosua Rodriguez, RN RN Cece Colunga RN RN aj1 Janine Givens, HACKLER DOLL WIGS-C HACKLER DOLL WIGS-Csnw Nayely Honeycutt rg4
== END 2017-11-24 17:11 | disposition home or self-care (01) ==
LOC: ER 16:30
DX: J06.9 Acute upper respiratory infection, unspecified (principal); J45.901 Unspecified asthma with (acute) exacerbation; H66.002 Acute suppurative otitis media without spontaneous rupture of ear drum, left ear
CPT/HCPCS: 99282

== ENCOUNTER 2017-12-01 09:47 | Emergency (ER) | payer SELFPAY ==
[2017-12-01] MEDS ORDERED: IBUPROFEN 400 MG TAB ONE (10:22)
[2017-12-01] MEDS ORDERED: HYDROCODONE/APAP 10/325 TAB ONE (10:22)
[2017-12-01] MEDS ORDERED: IBUPROFEN 200 MG TAB PO ONE (10:25)
--- NOTE | 2017-12-01 10:58 | RAD REPORT ---
EXAM DESCRIPTION: RAD - Ankle Right 3 View - 12/01/2017 10:30 am CLINICAL HISTORY: Slip and fall, twisting injury, ankle pain COMPARISON: None. FINDINGS: No fracture, dislocation or periosteal reaction. No joint effusion seen. No joint space na rrowing. Mild soft tissue swelling is present. Small accessory ossicle is present posterior margin ti biotalar joint space. Soft tissue injuries are not excluded. IMPRESSION: No fracture or acute bone or joint finding. Mild soft tissue swelling.
--- NOTE | 2017-12-01 11:17 | EDPHYS ---
Physician Documentation [facility] Name: Karen Castle Age: 22 yrs Sex: Female : 1995 Arrival Date: 12/01/2017 Time: 09:49 Bed 19 Private MD: None, None ED Physician Andrea Mejia HPI: 12/01 10:04 This 22 yrs old Female presents to ER via Wheelchair with complaints of Ankle rn Injury. 10:04 The patient presents with an injury, pain, swelling. The complaints affect the right rn ankle. Onset: The symptoms/episode began/occurred just prior to arrival. Associated signs and symptoms: Pertinent positives: swelling, Pertinent negatives: numbness, tingling. Modifying factors: The symptoms are alleviated by elevation of extremity, the symptoms are aggravated by weight bearing, movement. Severity of symptoms: At their worst the symptoms were moderate, in the emergency department the symptoms are unchanged. The patient has experienced similar episodes in the past. Reports stepped in hole, inversion injury of ankle, only ankle hurts, + swelling, able to ambulate but hurt. . 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 - Social history:: Smoking status: Patient/guardian denies using tobacco. - Ebola Screening: : Patient denies travel to an Ebola-affected area in the 21 days before illness onset. - Family history:: not pertinent. - Hospitalizations: : No recent hospitalization is reported. ROS: 10:04 Constitutional: Negative for fever, chills, and weight loss, MS/Extremity: + right rn ankle injury and pain Exam: 10:04 Constitutional: This is a well developed, well nourished patient who is awake, alert, rn and in no acute distress. MS/ Extremity: Pulses equal, no cyanosis. Neurovascular intact. + painful ROM right ankle with mild swelling, bilateral malleolus tenderness, no deformity, no proximal tib/fib tenderness, no tenderness of foot. Vital Signs: 09:57 BP 128 / 80; Pulse 83; Resp 18; Temp 98.0(O); Pulse Ox 98% on R/A; Weight 81.65 kg (R); aj1 Height 5 ft. 3 in. (160.02 cm) (R); Pain 8; 09:57 Body Mass Index 31.89 (81.65 kg, 160.02 cm) aj1 MDM: 09:56 Patient medically screened. rn 11:16 Differential diagnosis: fracture, sprain. Data reviewed: vital signs, nurses notes, rn radiologic studies, plain films, and as a result, I will discharge patient. Counseling: I had a detailed discussion with the patient and/or guardian regarding: the historical points, exam findings, and any diagnostic results supporting the discharge/admit diagnosis, radiology results, the need for outpatient follow up, to return to the emergency department if symptoms worsen or persist or if there are any questions or concerns that arise at home. Special discussion: I discussed with the patient/guardian in detail that at this point there is no indication for admission to the hospital. It is understood, however, that if the symptoms persist or worsen the patient needs to return immediately for re-evaluation. 12/01 10:04 Order name: XRAY Ankle RIGHT 3 view; Complete Time: 11:16 rn 12/01 11:18 Order name: Crutches; Complete Time: 13:06 rn Administered Medications: 10:21 Drug: [place] 10 mg-325 mg 1 tabs Route: PO; em 11:18 Follow up: Response: No adverse reaction; Pain is decreased em 10:21 Not Given (Physician Discretion): Motrin 800 mg PO once em 10:24 Drug: Ibuprofen 200 mg Route: PO; em 11:18 Follow up: Response: No adverse reaction; Pain is decreased em Disposition: 12/01/17 11:17 Discharged to Home. Impression: Sprain of ankle. - Condition is Stable. - Discharge Instructions: Ankle Sprain. - Medication Reconciliation Form, Thank You Letter, Antibiotic Education, Prescription Opioid Use, Work release form form. - Follow up: Private Physician; When: As needed; Reason: Recheck today's complaints, Re-evaluation by your physician. - Problem is new. - Symptoms have improved. Signatures: Dispatcher [employer] EDCece Henderson RN RN aj1 Abhijeet García NURSE'S AIDES TEACHER NURSE'S AIDES TEACHER Andrea Ramirez MD MD rn Baxter, Heather, RN RN hb Corrections: (The following items were deleted from the chart) 11:34 11:17 12/01/2017 11:17 Discharged to Home. Impression: Sprain of ankle. Condition is hb Stable. Forms are Medication Reconciliation Form, Thank You Letter, Antibiotic Education, Prescription Opioid Use. Follow up: Private Physician; When: As needed; Reason: Recheck today's complaints, Re-evaluation by your physician. Problem is new. Symptoms have improved. rn
--- NOTE | 2017-12-01 11:17 | ER ---
Nurse's Notes [facility] Name: Karen Castle Age: 22 yrs Sex: Female : 1995 Arrival Date: 12/01/2017 Time: 09:49 Bed 19 Private MD: None, None Diagnosis: Sprain of ankle Presentation: 12/01 09:55 Presenting complaint: Patient states: She was walking a dog at work and slipped in a aj1 dip in the ground. She fell and felt a crunch and pain in her ankle as she fell. Limited ROM in right ankle. Patient is unable to bear weight on right ankle. Transition of care: patient was not received from another setting of care. Onset of symptoms was December 01, 2017 at 09:30. Risk Assessment: Do you want to hurt yourself or someone else? Patient reports no desire to harm self or others. Initial Sepsis Screen: Does the patient meet any 2 criteria? No. Patient's initial sepsis screen is negative. Does the patient have a suspected source of infection? No. Patient's initial sepsis screen is negative. Care prior to arrival: None. 09:55 Method Of Arrival: Wheelchair aj1 09:55 Acuity: MOHIT 4 aj1 Triage Assessment: 09:57 General: Appears in no apparent distress. uncomfortable, Behavior is calm, cooperative, aj1 appropriate for age. Pain: Complains of pain in left lateral ankle, left Achilles, left medial ankle and anterior aspect of left ankle Pain currently is 8 out of 10 on a pain scale. Neuro: Level of Consciousness is awake, alert, obeys commands. Cardiovascular: Patient's skin is warm and dry. Respiratory: Airway is patent Respiratory effort is even, unlabored, Respiratory pattern is regular, symmetrical. Musculoskeletal: Range of motion: limited in left ankle. 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 - Social history:: Smoking status: Patient/guardian denies using tobacco. - Ebola Screening: : Patient denies travel to an Ebola-affected area in the 21 days before illness onset. - Family history:: not pertinent. - Hospitalizations: : No recent hospitalization is reported. Screenin:27 Abuse screen: Denies threats or abuse. Nutritional screening: No deficits noted. em Tuberculosis screening: No symptoms or risk factors identified. Fall Risk None identified. Assessment: 10:15 General: Appears in no apparent distress. comfortable, Behavior is calm, cooperative. em Pain: Complains of pain in right ankle. Pain: Pain currently is 8 out of 10 on a pain scale. Neuro: Level of Consciousness is awake, alert, obeys commands, Oriented to person, place, time. Cardiovascular: Capillary refill < 3 seconds Patient's skin is warm and dry. Respiratory: Airway is patent Respiratory effort is even, unlabored, Respiratory pattern is regular, symmetrical. GI: Abdomen is round non-distended. : No signs and/or symptoms were reported regarding the genitourinary system. EENT: No signs and/or symptoms were reported regarding the EENT system. Derm: Skin is intact, Skin is pink, warm \T\ dry. Musculoskeletal: Range of motion: limited in right ankle. Injury Description: trip injury. 10:20 Reassessment: I agree with previous assessment. hb Vital Signs: 09:57 BP 128 / 80; Pulse 83; Resp 18; Temp 98.0(O); Pulse Ox 98% on R/A; Weight 81.65 kg (R); aj1 Height 5 ft. 3 in. (160.02 cm) (R); Pain 8/10; 09:57 Body Mass Index 31.89 (81.65 kg, 160.02 cm) aj1 ED Course: 09:49 Patient arrived in ED. sb2 09:50 None, None is Private Physician. sb2 09:56 Andrea Mejia MD is Attending Physician. rn 09:57 Triage completed. aj1 09:57 Arm band placed on Patient placed in an exam room. aj1 10:10 Abhijeet García LVN is Primary Nurse. em 10:27 X-ray completed. Portable x-ray completed in exam room. Patient tolerated procedure la2 well. 10:27 Patient has correct armband on for positive identification. Bed in low position. Call em light in reach. Adult w/ patient. 10:27 No provider procedures requiring assistance completed. Patient did not have IV access em during this emergency room visit. 10:28 XRAY Ankle RIGHT 3 view In Process Unspecified. EDMS Administered Medications: 10:21 Drug: [place] 10 mg-325 mg 1 tabs Route: PO; em 11:18 Follow up: Response: No adverse reaction; Pain is decreased em 10:21 Not Given (Physician Discretion): Motrin 800 mg PO once em 10:24 Drug: Ibuprofen 200 mg Route: PO; em 11:18 Follow up: Response: No adverse reaction; Pain is decreased em Outcome: 11:17 Discharge ordered by . rn 11:33 Discharged to home ambulatory, with crutches, with family. 11:33 Condition: stable 11:33 Discharge instructions given to patient, Instructed on discharge instructions, follow up and referral plans. medication usage, crutch walking, Demonstrated understanding of instructions, follow-up care, medications, crutch walking. 11:34 Patient left the ED. Signatures: Dispatcher [employer] EDCece Henderson RN RN aj1 Abhijeet García, ASSOCIATE AGENT INSURANCE SALES ASSOCIATE AGENT INSURANCE SALES Andrea Mejia MD MD rn Baxter, Heather, RN RN Dayron Danielle la2 Oralia Curry sb2
== END 2017-12-01 11:34 | disposition home or self-care (01) ==
LOC: ER 09:47
DX: S93.401A Sprain of unspecified ligament of right ankle, initial encounter (principal); X58.XXXA Exposure to other specified factors, initial encounter; Y93.01 Activity, walking, marching and hiking; F41.9 Anxiety disorder, unspecified; J45.909 Unspecified asthma, uncomplicated
CPT/HCPCS: 99283

== ENCOUNTER 2017-12-28 15:46 | Emergency (ER) | payer SELFPAY ==
--- NOTE | 2017-12-28 16:06 | EDPHYS ---
Physician Documentation [facility] Name: Karen Castle Age: 22 yrs Sex: Female : 1995 Arrival Date: 12/28/2017 Time: 15:51 Bed 23 Private MD: None, None ED Physician Andrea Mejia HPI: 12/28 16:09 This 22 yrs old Female presents to ER via Ambulatory with complaints of Sinus kb Congestion. 16:09 The patient or guardian reports cough, that is intermittent, described as mild, with no kb sputum, sinus congestion and pain. Onset: The symptoms/episode began/occurred 1 week(s) ago. Severity of symptoms: At their worst the symptoms were mild, moderate, in the emergency department the symptoms are unchanged. Modifying factors: The symptoms are alleviated by nothing, the symptoms are aggravated by nothing. Associated signs and symptoms: Pertinent positives: rhinorrhea, Pertinent negatives: chest pain, diarrhea, ear ache, fever, nausea, sore throat, vomiting. The patient has experienced similar episodes in the past, a few times. The patient has not recently seen a physician. 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 - Social history:: Smoking status: Patient/guardian denies using tobacco. - Ebola Screening: : No symptoms or risks identified at this time. ROS: 16:08 Constitutional: Negative for fever, chills, and weight loss, Cardiovascular: Negative kb for chest pain, palpitations, and edema, Abdomen/GI: Negative for abdominal pain, nausea, vomiting, diarrhea, and constipation, MS/Extremity: Negative for injury and deformity, Skin: Negative for injury, rash, and discoloration, Neuro: Negative for headache, weakness, numbness, tingling, and seizure. 16:08 ENT: Positive for rhinorrhea, sinus congestion, sinus pain. 16:08 Respiratory: Positive for cough. Exam: 16:08 Constitutional: This is a well developed, well nourished patient who is awake, alert, kb and in no acute distress. Head/Face: Normocephalic, atraumatic. Chest/axilla: Normal chest wall appearance and motion. Nontender with no deformity. No lesions are appreciated. Cardiovascular: Regular rate and rhythm with a normal S1 and S2. No gallops, murmurs, or rubs. Normal PMI, no JVD. No pulse deficits. Respiratory: Lungs have equal breath sounds bilaterally, clear to auscultation and percussion. No rales, rhonchi or wheezes noted. No increased work of breathing, no retractions or nasal flaring. Abdomen/GI: Soft, non-tender, with normal bowel sounds. No distension or tympany. No guarding or rebound. No evidence of tenderness throughout. Back: No spinal tenderness. No costovertebral tenderness. Full range of motion. Skin: Warm, dry with normal turgor. Normal color with no rashes, no lesions, and no evidence of cellulitis. MS/ Extremity: Pulses equal, no cyanosis. Neurovascular intact. Full, normal range of motion. Neuro: Awake and alert, GCS 15, oriented to person, place, time, and situation. Cranial nerves II-XII grossly intact. Motor strength 5/5 in all extremities. Sensory grossly intact. Cerebellar exam normal. Normal gait. 16:08 Head/face: Sinus tenderness, that is moderate, is located over the right frontal sinus, left frontal sinus, right ethmoid sinus, left ethmoid sinus, right maxillary sinus and left maxillary sinus. Vital Signs: 16:04 BP 140 / 80; Pulse 77; Resp 16; Temp 98.4(O); Pulse Ox 100% on R/A; Weight 86.18 kg; la1 Height 5 ft. 4 in. (162.56 cm); 16:04 Body Mass Index 32.61 (86.18 kg, 162.56 cm) la1 MDM: 15:59 Patient medically screened. kb 16:08 Data reviewed: vital signs, nurses notes. Data interpreted: Pulse oximetry: on room air kb is 100 %. Interpretation: normal. Counseling: I had a detailed discussion with the patient and/or guardian regarding: the historical points, exam findings, and any diagnostic results supporting the discharge/admit diagnosis, the need for outpatient follow up, a family practitioner, to return to the emergency department if symptoms worsen or persist or if there are any questions or concerns that arise at home. Administered Medications: 16:10 Drug: predniSONE 40 mg Route: PO; la1 Disposition: 18:24 Co-signature as Attending Physician, Andrea Mejia MD. rn Disposition: 12/28/17 16:05 Discharged to Home. Impression: Acute sinusitis. - Condition is Stable. - Discharge Instructions: Sinusitis, Adult, [id number]. - Prescriptions for Prednisone 20 mg Oral Tablet - take 1 tablet by ORAL route once daily for 5 days; 5 tablet. Albuterol Sulfate 2.5 mg /3 mL (0.083 %) Inhalation Solution for Nebulization - inhale 1 unit by NEBULIZATION route every 8 hours As needed; 1 box. Albuterol Sulfate 90 mcg/actuation - inhale 1-2 puff by INHALATION route every 4-6 hours; 1 Inhaler. - Medication Reconciliation Form, Thank You Letter, Antibiotic Education, Prescription Opioid Use, Work release form form. - Follow up: Emergency Department; When: As needed; Reason: Worsening of condition. Follow up: Private Physician; When: 2 - 3 days; Reason: Recheck today's complaints, Continuance of care, Re-evaluation by your physician. Signatures: Marisol Nicholson, MARGARITO-C ROLL HANDLER-Andrea Nolen MD MD rn Raj Voss RN RN la1 Corrections: (The following items were deleted from the chart) 16:11 16:05 12/28/2017 16:05 Discharged to Home. Impression: Acute sinusitis. Condition is la1 Stable. Discharge Instructions: Sinusitis, Adult, [id number]. Prescriptions for Prednisone 20 mg Oral Tablet - take 1 tablet by ORAL route once daily for 5 days; 5 tablet, Albuterol Sulfate 2.5 mg /3 mL (0.083 %) Inhalation Solution for Nebulization - inhale 1 unit by NEBULIZATION route every 8 hours As needed; 1 box, Albuterol Sulfate 90 mcg/actuation - inhale 1-2 puff by INHALATION route every 4-6 hours; 1 Inhaler. and Forms are Medication Reconciliation Form, Thank You Letter, Antibiotic Education, Prescription Opioid Use. Follow up: Emergency Department; When: As needed; Reason: Worsening of condition. Follow up: Private Physician; When: 2 - 3 days; Reason: Recheck today's complaints, Continuance of care, Re-evaluation by your physician. kb
--- NOTE | 2017-12-28 16:06 | ER ---
Nurse's Notes [facility] Name: Karen Castle Age: 22 yrs Sex: Female : 1995 Arrival Date: 12/28/2017 Time: 15:51 Bed 23 Private MD: None, None Diagnosis: Acute sinusitis Presentation: 12/28 16:02 Presenting complaint: Patient states: Sinus congestion for one week. Transition of la1 care: patient was not received from another setting of care. Onset of symptoms was December 28, 2017. Risk Assessment: Do you want to hurt yourself or someone else? Patient reports no desire to harm self or others. Initial Sepsis Screen: Does the patient meet any 2 criteria? No. Patient's initial sepsis screen is negative. Does the patient have a suspected source of infection? No. Patient's initial sepsis screen is negative. Care prior to arrival: None. 16:02 Method Of Arrival: Ambulatory la1 16:02 Acuity: MOHIT 5 la1 Triage Assessment: 16:05 General: Appears in no apparent distress. Behavior is calm, cooperative. Pain: la1 Complains of pain in forehead, right cheek, nose and left cheek. 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 - Social history:: Smoking status: Patient/guardian denies using tobacco. - Ebola Screening: : No symptoms or risks identified at this time. Screenin:04 Abuse screen: Denies threats or abuse. Nutritional screening: No deficits noted. la1 Tuberculosis screening: No symptoms or risk factors identified. Fall Risk None identified. Assessment: 16:04 Reassessment: Patient is alert, oriented x 3, equal unlabored respirations, skin la1 warm/dry/pink. Vital Signs: 16:04 BP 140 / 80; Pulse 77; Resp 16; Temp 98.4(O); Pulse Ox 100% on R/A; Weight 86.18 kg; la1 Height 5 ft. 4 in. (162.56 cm); 16:04 Body Mass Index 32.61 (86.18 kg, 162.56 cm) la1 ED Course: 15:51 Patient arrived in ED. sb2 15:51 None, None is Private Physician. sb2 15:59 Marisol Nicholson FNP-C is [facility]. kb 15:59 Andrea Mejia MD is Attending Physician. kb 16:02 Raj Voss, RN is Primary Nurse. la1 16:02 Triage completed. la1 16:04 Arm band placed on right wrist. la1 16:05 Bed in low position. Call light in reach. la1 16:05 No provider procedures requiring assistance completed. Patient did not have IV access la1 during this emergency room visit. Administered Medications: 16:10 Drug: predniSONE 40 mg Route: PO; la1 Outcome: 16:05 Discharge ordered by . kb 16:11 Discharged to home ambulatory. la1 16:11 Condition: stable 16:11 Discharge instructions given to patient, family, Instructed on discharge instructions, follow up and referral plans. medication usage, Demonstrated understanding of instructions, follow-up care, medications, Prescriptions given X 3. 16:11 Patient left the ED. la1 Signatures: Marisol Nicholson FNP-C FNP-Ckb Raj Voss, RN RN la1 Oralia Curry sb2
[2017-12-28] MEDS ORDERED: predniSONE 20 MG TAB ONE (16:13)
== END 2017-12-28 16:11 | disposition home or self-care (01) ==
LOC: ER 15:46
DX: J01.90 Acute sinusitis, unspecified (principal); J45.909 Unspecified asthma, uncomplicated; F41.9 Anxiety disorder, unspecified; F32.9 Major depressive disorder, single episode, unspecified
CPT/HCPCS: 99283; J7512

== ENCOUNTER 2018-01-31 11:49 | Emergency (ER) | payer SELFPAY ==
--- NOTE | 2018-01-31 14:31 | RAD REPORT ---
EXAM DESCRIPTION: RAD - Chest Single View - 01/31/2018 2:19 pm CLINICAL HISTORY: Cough, nasal congestion, asthma history COMPARISON: None. TECHNIQUE: AP portable chest image was obtained 1409 hours . FINDINGS: Lungs are clear. No peribronchial thickening or prominent perihilar lung pattern. Heart an d vasculature are normal. No measurable pleural effusion and no pneumothorax. No acute bony abnormali ty seen. No acute aortic findings suspected. IMPRESSION: No acute cardiopulmonary process.
--- NOTE | 2018-01-31 14:42 | ER ---
Nurse's Notes [facility] Name: Karen Castle Age: 23 yrs Sex: Female : 1995 Arrival Date: 01/31/2018 Time: 11:53 Bed 25 Private MD: None, None Diagnosis: Acute bronchitis Presentation: 01/31 12:01 Presenting complaint: Patient states: Nasal congestion with cough for 2 weeks. aj Transition of care: patient was not received from another setting of care. Onset of symptoms was January 20, 2018. Risk Assessment: Do you want to hurt yourself or someone else? Patient reports no desire to harm self or others. Initial Sepsis Screen: Does the patient meet any 2 criteria? No. Patient's initial sepsis screen is negative. Does the patient have a suspected source of infection? No. Patient's initial sepsis screen is negative. Care prior to arrival: None. 12:01 Method Of Arrival: Ambulatory aj 12:01 Acuity: MOHIT 4 aj Triage Assessment: 12:02 General: Appears in no apparent distress. comfortable, Behavior is calm, cooperative, aj appropriate for age. Pain: Denies pain. EENT: Reports nasal congestion nasal discharge. Neuro: Level of Consciousness is awake, alert, obeys commands, Oriented to person, place, time, situation, Appropriate for age. Respiratory: Reports cough that is Airway is patent Respiratory effort is even, unlabored, Respiratory pattern is regular, symmetrical. Derm: Skin is intact, is healthy with good turgor, Skin is pink, warm \T\ dry. normal. 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 - Social history:: Smoking status: Patient/guardian denies using tobacco. - Ebola Screening: : Patient negative for fever greater than or equal to 101.5 degrees Fahrenheit, and additional compatible Ebola Virus Disease symptoms Patient denies exposure to infectious person Patient denies travel to an Ebola-affected area in the 21 days before illness onset No symptoms or risks identified at this time. Screenin:28 Abuse screen: Denies threats or abuse. Denies injuries from another. Nutritional ed1 screening: No deficits noted. Tuberculosis screening: No symptoms or risk factors identified. Fall Risk None identified. Assessment: 13:28 General: Appears in no apparent distress. Behavior is calm, cooperative, Reports ed1 feeling ill for 2-3 days, fatigue for 2-3 days, Denies fever, chills. Pain: Denies pain. Neuro: Level of Consciousness is awake, alert, obeys commands, Oriented to person, place, time, situation. Cardiovascular: Denies chest pain, Heart tones S1 S2 present. Respiratory: Reports cough that is productive, Airway is patent Respiratory effort is even, unlabored, Respiratory pattern is regular, symmetrical, Breath sounds are clear bilaterally. GI: No signs and/or symptoms were reported involving the gastrointestinal system. : No signs and/or symptoms were reported regarding the genitourinary system. EENT: No signs and/or symptoms were reported regarding the EENT system. Derm: Skin is pink, warm \T\ dry. Musculoskeletal: Circulation, motion, and sensation intact. Range of motion: intact in all extremities. 14:00 Reassessment: I agree with above assessment by EMILY Braden. iw 15:03 Reassessment: Patient appears in no apparent distress at this time. No changes from ed1 previously documented assessment. Patient and/or family updated on plan of care and expected duration. Pain level reassessed. Patient is alert, oriented x 3, equal unlabored respirations, skin warm/dry/pink. Vital Signs: 12:02 BP 118 / 85; Pulse 95; Resp 17; Temp 97.6; Pulse Ox 99% on R/A; Weight 86.18 kg; Height aj 5 ft. 4 in. (162.56 cm); 13:28 BP 118 / 76; Pulse 78; Resp 18; Pulse Ox 99% on R/A; Pain 0/10; ed1 15:03 BP 114 / 76; Pulse 73; Resp 17; Temp 97.9(O); Pulse Ox 100% on R/A; Pain 0/10; ed1 12:02 Body Mass Index 32.61 (86.18 kg, 162.56 cm) ED Course: 11:53 Patient arrived in ED. mr 11:53 None, None is Private Physician. mr 12:01 Triage completed. aj 12:02 Arm band placed on left wrist. Patient placed in waiting room, Patient notified of wait aj time. Labs ordered per protocol. Drawn by ED staff. 13:19 Asiya Wells LVN is Primary Nurse. ed1 13:23 Erasto Ruvalcaba PA is PHCP. [place] 13:23 Bud Mcpherson MD is Attending Physician. [place] 13:28 Patient has correct armband on for positive identification. Placed in gown. Bed in low ed1 position. Call light in reach. Side rails up X 1. Pulse ox on. NIBP on. 14:11 X-ray completed. Portable x-ray completed in exam room. jr1 14:12 Chest Single View XRAY In Process Unspecified. EDMS 15:03 No provider procedures requiring assistance completed. Patient did not have IV access ed1 during this emergency room visit. Administered Medications: No medications were administered Outcome: 14:42 Discharge ordered by MD. [place] 15:03 Discharged to home ambulatory, with family. ed1 15:03 Condition: good 15:03 Discharge instructions given to patient, Instructed on discharge instructions, follow up and referral plans. medication usage, Demonstrated understanding of instructions, follow-up care, medications, Prescriptions given X 3. 15:05 Patient left the ED. ed1 Signatures: Dispatcher [employer] EDMS Josie Thompson, RN Erasto Colón PA PA rosa Jane Khan Jennifer jr1 Yenni Manzano, RN Asiya Wilde LVN LVN ed1
--- NOTE | 2018-01-31 14:43 | EDPHYS ---
Physician Documentation [facility] Name: Karen Castle Age: 23 yrs Sex: Female : 1995 Arrival Date: 01/31/2018 Time: 11:53 Bed 25 Private MD: None, None ED Physician Bud Mcpherson HPI: 01/31 13:38 This 23 yrs old Female presents to ER via Ambulatory with complaints of Chest jmm Congestion, Sinus Congestion, Cough. 13:38 The patient or guardian reports cough, congestion. Onset: The symptoms/episode jmm began/occurred gradually, 2 week(s) ago. Associated signs and symptoms: Pertinent positives: nausea. This is a 23 year old female with a history of asthma that presents to the ED with cough and sinus congestion beginning approx 2 weeks ago. Patient complains of frontal sinus pressure. States having chills. . 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 - Social history:: Smoking status: Patient/guardian denies using tobacco. - Ebola Screening: : Patient negative for fever greater than or equal to 101.5 degrees Fahrenheit, and additional compatible Ebola Virus Disease symptoms Patient denies exposure to infectious person Patient denies travel to an Ebola-affected area in the 21 days before illness onset No symptoms or risks identified at this time. ROS: 13:38 Eyes: Negative for injury, pain, redness, and discharge. jmm 13:38 Neck: Negative for injury, pain, and swelling, Cardiovascular: Negative for chest pain, palpitations, and edema. 13:38 Back: Negative for injury and pain, Neuro: Negative for headache, weakness, numbness, tingling, and seizure. 13:38 Constitutional: Positive for chills, malaise. 13:38 ENT: Positive for sinus congestion. 13:38 Respiratory: Positive for cough. 13:38 Abdomen/GI: Positive for nausea. 13:38 All other systems are negative. Exam: 13:38 Head/Face: atraumatic. Eyes: EOMI, no conjunctival erythema appreciated ENT: Moist [facility] Mucus Membranes Neck: Trachea midline, Supple 13:38 Constitutional: The patient appears in no acute distress, alert, awake. 13:38 ENT: Posterior pharynx: erythema, that is mild, Dental exam: Vital Signs: 12:02 BP 118 / 85; Pulse 95; Resp 17; Temp 97.6; Pulse Ox 99% on R/A; Weight 86.18 kg; Height aj 5 ft. 4 in. (162.56 cm); 13:28 BP 118 / 76; Pulse 78; Resp 18; Pulse Ox 99% on R/A; Pain 0/10; ed1 15:03 BP 114 / 76; Pulse 73; Resp 17; Temp 97.9(O); Pulse Ox 100% on R/A; Pain 0/10; ed1 12:02 Body Mass Index 32.61 (86.18 kg, 162.56 cm) MDM: 13:38 Patient medically screened. [facility] 14:41 Data reviewed: vital signs, nurses notes. Counseling: I had a detailed discussion with rosa the patient and/or guardian regarding: the historical points, exam findings, and any diagnostic results supporting the discharge/admit diagnosis, the need for outpatient follow up, to return to the emergency department if symptoms worsen or persist or if there are any questions or concerns that arise at home. 14:42 ED course: Patient is alert and non toxic in a appearance the ED. CXR negative, flu jmm swabs negative. Patient advised to follow up with PCP or return to the ED if symptoms worsen. . 14:42 Data interpreted: Pulse oximetry: on room air is 100 %. Interpretation: normal. [facility] 01/31 12:00 Order name: Strep; Complete Time: 13:39 01/31 12:00 Order name: Flu; Complete Time: 13:39 01/31 13:11 Order name: Throat Culture [facility] 01/31 13:39 Order name: Chest Single View XRAY; Complete Time: 14:42 [facility] Administered Medications: No medications were administered Disposition: 02/01 13:11 Co-signature as Attending Physician, Bud Mcpherson MD I agree with the assessment and kdr plan of care. Disposition: 01/31/18 14:42 Discharged to Home. Impression: Acute bronchitis. - Condition is Stable. - Discharge Instructions: Acute Bronchitis, Adult. - Prescriptions for Prednisone 20 mg Oral Tablet - take 3 tablet by ORAL route once daily for 5 days; 15 tablet. Zithromax Z- Pato 250 mg Oral Tablet - take 1 tablet by ORAL route as directed for 5 days Day 1 - take two (2) tablets one time. Day 2, 3, 4 , 5 take one (1) tablet once daily.; 6 tablet. Albuterol Sulfate 90 mcg/actuation - inhale 1-2 puff by INHALATION route every 4-6 hours; 1 Inhaler. - Medication Reconciliation Form, Thank You Letter, Antibiotic Education, Prescription Opioid Use, Work release form form. - Follow up: Private Physician; When: 2 - 3 days; Reason: Recheck today's complaints, Continuance of care, Re-evaluation by your physician. Signatures: Dispatcher [employer] EDMS Josie Thompson RN RN aj Rittger, Kevin, MD MD kdr Mickail, Joel, PA PA jmm Riggs, Erika, LVN INSTRUCTIONAL WRITER ed1 Corrections: (The following items were deleted from the chart) 01/31 15:05 14:42 01/31/2018 14:42 Discharged to Home. Impression: Acute bronchitis. Condition is ed1 Stable. Forms are Medication Reconciliation Form, Thank You Letter, Antibiotic Education, Prescription Opioid Use. Follow up: Private Physician; When: 2 - 3 days; Reason: Recheck today's complaints, Continuance of care, Re-evaluation by your physician. angle
== END 2018-01-31 15:05 | disposition home or self-care (01) ==
LOC: ER 11:49
DX: J45.909 Unspecified asthma, uncomplicated (principal); F41.9 Anxiety disorder, unspecified; F32.9 Major depressive disorder, single episode, unspecified
CPT/HCPCS: 71045; 87070; 87081; 87804; 99284

== ENCOUNTER 2018-02-22 08:56 | Emergency (ER) | payer SELFPAY ==
[2018-02-22] MEDS ORDERED: ALBUTEROL 2.5 MG/3 ML NEB SOL ONE ×3 (09:17→11:32)
[2018-02-22] MEDS ORDERED: IPRATROPIUM BROM 0.5MG/2.5ML ONE (09:36)
[2018-02-22 09:37] LABS: Urine Blood 1+ (NEG); Urine Glucose NEGATIVE (NEG); Urine Protein NEGATIVE (NEG)
[2018-02-22] MEDS ORDERED: predniSONE 20 MG TAB ONE (09:37)
--- NOTE | 2018-02-22 10:02 | RAD REPORT ---
EXAM DESCRIPTION: Shashank Gonzalez (2 Views)02/22/2018 9:41 am CLINICAL HISTORY: Chest pain COMPARISON: 01/31/2018 FINDINGS: The lungs appear clear of acute infiltrate. The heart is normal size IMPRESSION: No acute abnormalities displayed
--- NOTE | 2018-02-22 13:41 | ER ---
Nurse's Notes [facility] Name: Karen Castle Age: 23 yrs Sex: Female : 1995 Arrival Date: 02/22/2018 Time: 08:57 Bed 19 Private MD: Diagnosis: Mild persistent asthma with (acute) exacerbation;Acute sinusitis Presentation: 02/22 09:02 Presenting complaint: Patient states: SOB that started yesterday with cough, sputum em color yellow, hx of asthma, reports felling chills, unknown temp. audible wheezing noted. Transition of care: patient was not received from another setting of care. Onset of symptoms was February 21, 2018. Risk Assessment: Do you want to hurt yourself or someone else? Patient reports no desire to harm self or others. Initial Sepsis Screen:. Care prior to arrival: None. 09:02 Method Of Arrival: Ambulatory em 09:20 Acuity: MOHIT 3 hb 13:55 Initial Sepsis Screen: Does the patient meet any 2 criteria? RR > 20 per min. HR > 90 em bpm. Yes Does the patient have a suspected source of infection? No. Patient's initial sepsis screen is negative. Triage Assessment: 09:04 General: Appears uncomfortable, Behavior is calm, cooperative. Pain: Denies pain. 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 - Social history:: Smoking status: Patient/guardian denies using tobacco. - Ebola Screening: : Patient negative for fever greater than or equal to 101.5 degrees Fahrenheit, and additional compatible Ebola Virus Disease symptoms Patient denies exposure to infectious person Patient denies travel to an Ebola-affected area in the 21 days before illness onset No symptoms or risks identified at this time. Screenin:15 Abuse screen: Denies threats or abuse. Nutritional screening: No deficits noted. em Tuberculosis screening: No symptoms or risk factors identified. Fall Risk None identified. Assessment: 09:04 General: Appears in no apparent distress. uncomfortable, Behavior is calm, cooperative. em Pain: Denies pain. Neuro: Level of Consciousness is awake, alert, obeys commands, Oriented to person, place, time, situation. Cardiovascular: Heart tones S1 S2 present Capillary refill < 3 seconds Patient's skin is warm and dry. Respiratory: Reports shortness of breath cough that is productive, pain with cough Airway is patent Respiratory effort is even, Respiratory pattern is symmetrical, Breath sounds with wheezes bilaterally. Onset: The symptoms/episode began/occurred yesterday, the patient has moderate shortness of breath. GI: Patient currently denies nausea, vomiting. : No signs and/or symptoms were reported regarding the genitourinary system. EENT: No signs and/or symptoms were reported regarding the EENT system. Derm: Skin is intact, Skin is pink, warm \T\ dry. Musculoskeletal: Range of motion: intact in all extremities. 09:15 Reassessment: I agree with previous assessment. hb 10:33 Reassessment: Patient appears in no apparent distress at this time. Patient and/or em family updated on plan of care and expected duration. Pain level reassessed. Patient is alert, oriented x 3, equal unlabored respirations, skin warm/dry/pink. Patient states feeling better. Patient states symptoms have improved. 11:26 Reassessment: Patient appears in no apparent distress at this time. Patient and/or em family updated on plan of care and expected duration. Pain level reassessed. Patient is alert, oriented x 3, equal unlabored respirations, skin warm/dry/pink. started continuous albuterol breathing treatment. 12:30 Reassessment: Patient appears in no apparent distress at this time. Patient and/or em family updated on plan of care and expected duration. Pain level reassessed. Patient is alert, oriented x 3, equal unlabored respirations, skin warm/dry/pink. Patient states feeling better. Patient states symptoms have improved. 13:43 Reassessment: Patient appears in no apparent distress at this time. Patient and/or em family updated on plan of care and expected duration. Pain level reassessed. Patient is alert, oriented x 3, equal unlabored respirations, skin warm/dry/pink. Vital Signs: 09:04 BP 104 / 64; Pulse 114; Resp 24; Temp 98.2(O); Pulse Ox 93% on R/A; Pain 0/10; em 10:28 BP 109 / 76; Pulse 114; Resp 24; Pulse Ox 97% on R/A; em 11:26 BP 112 / 70; Pulse 124; Resp 26; Pulse Ox 99% on Nebulizer Mask; em 12:30 BP 107 / 67; Pulse 116; Resp 18; Pulse Ox 96% on R/A; em 13:52 BP 103 / 79; Pulse 111; Resp 22; Pulse Ox 97% on R/A; Pain 0/10; em ED Course: 08:57 Patient arrived in ED. as 09:02 Abhijeet García LVN is Primary Nurse. em 09:04 Arm band placed on. em 09:11 Porsche Manuel NP is PHCP. rh1 09:11 Bud Mcpherson MD is Attending Physician. rh1 09:15 Patient has correct armband on for positive identification. Bed in low position. Call em light in reach. Side rails up X2. Adult w/ patient. 09:20 Triage completed. hb 09:39 Patient moved to radiology via wheelchair. kw 09:40 Chest Pa And Lat (2 Views) XRAY In Process Unspecified. EDMS 13:29 EKG done, by ED staff, reviewed by Bud Mcpherson MD. ds4 13:55 No provider procedures requiring assistance completed. Patient did not have IV access em during this emergency room visit. Administered Medications: 09:15 Drug: Albuterol 2.5 mg Route: Inhalation; em 09:30 Follow up: Response: No adverse reaction em 09:33 Drug: predniSONE 20 mg Route: PO; em 11:28 Follow up: Response: No adverse reaction em 09:55 Drug: Albuterol - atroVENT (3:1) (2.5 mg - 0.5 mg) 3 ml Route: Nebulizer; em 11:00 Follow up: Response: No adverse reaction em 11:28 Drug: Albuterol 2.5 mg Route: Inhalation; em 13:44 Follow up: Response: No adverse reaction em Outcome: 13:40 Discharge ordered by MD. rh1 13:55 Discharged to home ambulatory, with family. em 13:55 Condition: good 13:55 Discharge instructions given to patient, family, Instructed on discharge instructions, follow up and referral plans. medication usage, Demonstrated understanding of instructions, follow-up care, medications, Prescriptions given X 5 13:57 Patient left the ED. em Signatures: Dispatcher [employer] EDMS Abhijeet García, ANALYTICS INTERN ANALYTICS INTERN em Precious Lentz Kimberlee kw Swanson, Donovan ds4 Porsche Manuel, ETHNOARCHAEOLOGIST ETHNOARCHAEOLOGIST rh1 Swapna Abel, RN RN hb Corrections: (The following items were deleted from the chart) 09:06 09:02 Presenting complaint: Patient states: SOB that started yesterday with cough, em sputum color yellow, hx of asthma, reports felling chills, unknown temp. em 11:49 11:26 BP 112 / 70; Pulse 124bpm; Resp 26bpm; Pulse Ox 99% RA; em em
--- NOTE | 2018-02-22 13:41 | EDPHYS ---
Physician Documentation [facility] Name: Karen Castle Age: 23 yrs Sex: Female : 1995 Arrival Date: 02/22/2018 Time: 08:57 Bed 19 Private MD: ED Physician Bud Mcpherson HPI: 02/22 09:16 This 23 yrs old Female presents to ER via Ambulatory with complaints of rh1 Asthma Exacerbation. 09:16 The patient presents to the emergency department with wheezing, Current therapy: rh1 albuterol inhaler, that began without any particular precipitating event, the patient was reported to have chest tightness, productive cough, trouble breathing, Pre-hospital care: med neb, albuterol. Onset: The symptoms/episode began/occurred yesterday. Modifying factors: The symptoms are alleviated by nothing, the symptoms are aggravated by nothing. Associated signs and symptoms: Pertinent positives: chest pain, fever, Pertinent negatives: headache, nausea, palpitations, vomiting. Severity of symptoms: At their worst the symptoms were moderate in the emergency department the symptoms are unchanged. The patient has experienced similar episodes in the past. The patient has been recently seen at the [facility] Emergency Department, a couple of weeks ago. She began with difficulty breathing, coughing and wheezing, with subjective chills that began yesterday. Reports + productive coughing with yellow sputum, and thick green nasal drainage. She was seen here approx 2 weeks ago, given z - pack, albuterol and steroids, and was improved until yesterday.. 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 - Social history:: Smoking status: Patient/guardian denies using tobacco. - Ebola Screening: : Patient negative for fever greater than or equal to 101.5 degrees Fahrenheit, and additional compatible Ebola Virus Disease symptoms Patient denies exposure to infectious person Patient denies travel to an Ebola-affected area in the 21 days before illness onset No symptoms or risks identified at this time. ROS: 09:16 Abdomen/GI: Negative for abdominal pain, nausea, vomiting, diarrhea, and constipation. rh1 09:16 Constitutional: Positive for body aches, chills, Negative for poor PO intake. 09:16 ENT: Positive for rhinorrhea, sinus congestion, Negative for sore throat, difficulty swallowing, difficulty handling secretions, hoarseness. 09:16 Cardiovascular: Positive for chest pain, Negative for edema, palpitations. 09:16 Respiratory: Positive for cough, with yellow sputum, shortness of breath, wheezing. 09:16 Neuro: Negative for altered mental status, dizziness, syncope, near syncope. 09:16 All other systems are negative. Exam: 09:16 Back: No spinal tenderness. No costovertebral tenderness. Full range of motion. rh1 Skin: Warm, dry with normal turgor. Normal color with no rashes, no lesions, and no evidence of cellulitis. MS/ Extremity: Pulses equal, no cyanosis. Neurovascular intact. Full, normal range of motion. 09:16 Respiratory: the patient does not display signs of respiratory distress, Respirations: labored breathing, is not present, asymmetrical chest movement, is not seen, accessory muscle usage, is absent, prolonged exhalation, that is mild, pursed lip breathing, is not present, Breath sounds: rhonchi, that are mild, that are moderate, are scattered, wheezing: expiratory that is moderate, is heard diffusely. 09:16 Musculoskeletal/extremity: Calves: are non-tender, have equal circumference. 09:16 Neuro: Orientation: is normal, to person, place \T\ time. Mentation: is normal, lucid, able to follow commands, Motor: is normal, moves all fours, Sensation: is normal, no obvious gross deficits, Gait: is steady, at a normal pace, without difficulty. 09:16 Constitutional: This is a well developed, well nourished patient who is awake, alert, rh1 and in no acute distress. Head/Face: Normocephalic, atraumatic. Neck: Trachea midline, and no cervical lymphadenopathy. Supple, full range of motion without nuchal rigidity. No Meningismus. Chest/axilla: Normal chest wall appearance and motion. Nontender with no deformity. No lesions are appreciated. Cardiovascular: Regular rate and rhythm with a normal S1 and S2. No gallops, murmurs, or rubs. No JVD. No pulse deficits. 09:16 ENT: External ear(s): are unremarkable, Ear canal(s): are normal, clear, TM's: are rh1 normal, no evidence of bulging, no dullness, no erythema, no fluid levels, no hemotympanum, no rupture, normal bony landmarks, Nose: Nasal mucosa: edematous, erythematous, moist, Turbinates: are swollen bilaterally, nasal drainage, that is moderate, and is seen coming from both nares, that is green, Mouth: is normal, no lip abnormalities, no mucosal abnormalities, Posterior pharynx: is normal, airway is patent, no erythema, no exudate, no peritonsilar mass, no pooling of secretions, no swelling, normal tonsil apperance, normal sized tonsils, normal uvula appearance, normal uvula size, frontal and maxillary tenderness bilaterally. 12:30 Respiratory: the patient does not display signs of respiratory distress, Respirations: rh1 normal, Breath sounds: wheezing: is improved with mild inspiratory wheeze, exp. wheeze resolved. Vital Signs: 09:04 BP 104 / 64; Pulse 114; Resp 24; Temp 98.2(O); Pulse Ox 93% on R/A; Pain 0/10; em 10:28 BP 109 / 76; Pulse 114; Resp 24; Pulse Ox 97% on R/A; em 11:26 BP 112 / 70; Pulse 124; Resp 26; Pulse Ox 99% on Nebulizer Mask; em 12:30 BP 107 / 67; Pulse 116; Resp 18; Pulse Ox 96% on R/A; em 13:52 BP 103 / 79; Pulse 111; Resp 22; Pulse Ox 97% on R/A; Pain 0/10; em MDM: 09:16 Patient medically screened. rh1 10:30 Response to treatment: the patient's symptoms have markedly improved after treatment, rh1 reports overall SOB much improved, with diffuse insp/exp wheezing, continues with neb treatment. 11:22 ED course: with increased SOB, audible wheezing with inspiration, diffuse insp/exp rh1 wheezing with auscultation. 13:18 Data reviewed: vital signs, nurses notes, lab test result(s), EKG, radiologic studies, rh1 plain films, and as a result, I will discharge patient. Data interpreted: Pulse oximetry: on room air is 96 %. Interpretation: normal. 13:18 Special discussion: Based on the patient's history, exam, and Dx evaluation, there is rh1 no indication for emergent intervention or inpatient Tx. It is understood by the patient/guardian that if the Sx's persist or worsen they need to return immediately for re-evaluation. 02/22 09:23 Order name: Flu; Complete Time: 10:23 rh1 02/22 09:35 Order name: Urine Dipstick--Ancillary (enter results); Complete Time: 09:39 ds4 02/22 09:23 Order name: Chest Pa And Lat (2 Views) XRAY; Complete Time: 10:23 rh1 02/22 09:35 Order name: Urine --Ancillary (enter results); Complete Time: 09:39 ds4 02/22 09:23 Order name: Urine Dipstick-Ancillary (obtain specimen); Complete Time: 09:33 rh1 02/22 09:23 Order name: Urine Test (obtain specimen); Complete Time: 09:33 rh1 Administered Medications: 09:15 Drug: Albuterol 2.5 mg Route: Inhalation; em 09:30 Follow up: Response: No adverse reaction em 09:33 Drug: predniSONE 20 mg Route: PO; em 11:28 Follow up: Response: No adverse reaction em 09:55 Drug: Albuterol - atroVENT (3:1) (2.5 mg - 0.5 mg) 3 ml Route: Nebulizer; em 11:00 Follow up: Response: No adverse reaction em 11:28 Drug: Albuterol 2.5 mg Route: Inhalation; em 13:44 Follow up: Response: No adverse reaction em Disposition: 16:50 Co-signature as Attending Physician, Bud Mcpherson MD I agree with the assessment and kdr plan of care. Disposition: 02/22/18 13:40 Discharged to Home. Impression: Mild persistent asthma with (acute) exacerbation, Acute sinusitis. - Condition is Stable. - Discharge Instructions: Asthma, Adult, Sinusitis, Adult. - Prescriptions for Prednisone 20 mg Oral Tablet - take 1 tablet by ORAL route once daily for 5 days; 5 tablet. budesonide 1 mg/2 mL Inhalation suspension for nebulization - inhale 2 milliliter by NEBULIZATION route every 12 hours; 1 box. Albuterol Sulfate 2.5 mg /3 mL (0.083 %) Inhalation Solution for Nebulization - inhale 1 unit by NEBULIZATION route every 8 hours As needed; 1 box. Augmentin 875- 125 mg Oral Tablet - take 1 tablet by ORAL route every 12 hours for 10 days; 20 tablet. Albuterol Sulfate 90 mcg/actuation - inhale 1-2 puff by INHALATION route every 4-6 hours; 1 Inhaler. - Work release form, Medication Reconciliation Form, Thank You Letter, Antibiotic Education, Prescription Opioid Use form. - Follow up: Private Physician; When: 1 - 2 days; Reason: Recheck today's complaints, Continuance of care, Re-evaluation by your physician. Follow up: Emergency Department; When: As needed; Reason: Fever > 102 F, If symptoms return, Trouble breathing, Worsening of condition. - Problem is new. - Symptoms have improved. Signatures: Dispatcher [employer] EDBud Reynoso MD MD kdr Munoz, Edgar, COMPOSITE ENGINEER COMPOSITE ENGINEER Porsche Ibarra NP COMPRESSOR ASSEMBLER rh1 Corrections: (The following items were deleted from the chart) 13:19 13:18 Data reviewed: vital signs, nurses notes, lab test result(s), radiologic studies, rh1 plain films, and as a result, I will discharge patient, rh1 13:41 13:40 02/22/2018 13:40 Discharged to Home. Impression: Mild persistent asthma with rh1 (acute) exacerbation. Condition is Stable. Discharge Instructions: Asthma, Adult. Prescriptions for Prednisone 20 mg Oral Tablet - take 1 tablet by ORAL route once daily for 5 days; 5 tablet, budesonide 1 mg/2 mL Inhalation suspension for nebulization - inhale 2 milliliter by NEBULIZATION route every 12 hours; 1 box, Albuterol Sulfate 2.5 mg /3 mL (0.083 %) Inhalation Solution for Nebulization - inhale 1 unit by NEBULIZATION route every 8 hours As needed; 1 box, Augmentin 875-125 mg Oral Tablet - take 1 tablet by ORAL route every 12 hours for 10 days; 20 tablet, Albuterol Sulfate 90 mcg/actuation - inhale 1-2 puff by INHALATION route every 4-6 hours; 1 Inhaler. and Forms are Medication Reconciliation Form, Thank You Letter, Antibiotic Education, Prescription Opioid Use. Follow up: Private Physician; When: 1 - 2 days; Reason: Recheck today's complaints, Continuance of care, Re-evaluation by your physician. Follow up: Emergency Department; When: As needed; Reason: Fever > 102 F, If symptoms return, Trouble breathing, Worsening of condition. Problem is new. Symptoms have improved. rh1 13:42 09:16 Constitutional: This is a well developed, well nourished patient who is awake, rh1 alert, and in no acute distress. Head/Face: Normocephalic, atraumatic. Neck: Trachea midline, and no cervical lymphadenopathy. Supple, full range of motion without nuchal rigidity. No Meningismus. Chest/axilla: Normal chest wall appearance and motion. Nontender with no deformity. No lesions are appreciated. Cardiovascular: Regular rate and rhythm with a normal S1 and S2. No gallops, murmurs, or rubs. No JVD. No pulse deficits. rh1 13:57 13:41 02/22/2018 13:40 Discharged to Home. Impression: Mild persistent asthma with em (acute) exacerbation; Acute sinusitis. Condition is Stable. Discharge Instructions: Asthma, Adult. Prescriptions for Prednisone 20 mg Oral Tablet - take 1 tablet by ORAL route once daily for 5 days; 5 tablet, budesonide 1 mg/2 mL Inhalation suspension for nebulization - inhale 2 milliliter by NEBULIZATION route every 12 hours; 1 box, Albuterol Sulfate 2.5 mg /3 mL (0.083 %) Inhalation Solution for Nebulization - inhale 1 unit by NEBULIZATION route every 8 hours As needed; 1 box, Augmentin 875-125 mg Oral Tablet - take 1 tablet by ORAL route every 12 hours for 10 days; 20 tablet, Albuterol Sulfate 90 mcg/actuation - inhale 1-2 puff by INHALATION route every 4-6 hours; 1 Inhaler. and Forms are Medication Reconciliation Form, Thank You Letter, Antibiotic Education, Prescription Opioid Use. Follow up: Private Physician; When: 1 - 2 days; Reason: Recheck today's complaints, Continuance of care, Re-evaluation by your physician. Follow up: Emergency Department; When: As needed; Reason: Fever > 102 F, If symptoms return, Trouble breathing, Worsening of condition. Problem is new. Symptoms have improved. rh1
--- NOTE | 2018-02-23 10:21 | EKG ---
Test Date: 2018-02-22 Test Time: 13:23:50 Social Media Marketing Specialist: CIARA MEASUREMENT RESULTS: Intervals: Rate: 113 HI: 116 QRSD: 76 QT: 312 QTc: 427 [place]: P: 78 HI: 116 QRS: 15 T: 5 INTERPRETIVE STATEMENTS: Sinus tachycardia Possible Left atrial enlargement Borderline ECG Compared to ECG 10/11/2017 16:37:41 Sinus rhythm no longer present T-wave abnormality no longer present Electronically Signed On 02-23-18 10:20:23 EXTRUSION LINE OPERATOR by Fly Peterson
== END 2018-02-22 13:57 | disposition home or self-care (01) ==
LOC: ER 08:56
DX: J45.31 Mild persistent asthma with (acute) exacerbation (principal); J01.90 Acute sinusitis, unspecified
CPT/HCPCS: 71046; 81003; 81025; 87804; 93005; 94640; 99284; J7512

== ENCOUNTER 2018-04-13 16:50 | Emergency (ER) | payer SELFPAY ==
[2018-04-13] MEDS ORDERED: ALBUTEROL 2.5 MG/3 ML NEB SOL ONE (17:13)
[2018-04-13] MEDS ORDERED: IPRATROPIUM BROM 0.5MG/2.5ML ONE (17:13)
[2018-04-13] MEDS ORDERED: predniSONE 20 MG TAB ONE (17:13)
[2018-04-13] MEDS ORDERED: AMOX/K CLAV 875 MG TAB ONE (17:19)
[2018-04-13] MEDS ORDERED: FAMOTIDINE 20 MG TAB ONE (17:20)
--- NOTE | 2018-04-13 18:36 | EDPHYS ---
Physician Documentation [facility] Name: Karen Castle Age: 23 yrs Sex: Female : 1995 Arrival Date: 04/13/2018 Time: 16:53 Bed 26 Private MD: None, None ED Physician Chapin Castañeda HPI: 04/13 17:23 This 23 yrs old Female presents to ER via Ambulatory with complaints of snw Breathing Difficulty. 17:23 The patient has shortness of breath with light activity. Onset: The symptoms/episode snw began/occurred suddenly, 2 day(s) ago. Duration: The symptoms pt states + cold, upper resp s/s x 4 days and then 2 days ago she began wheezing . The patient's shortness of breath has no apparent modifying factors. Associated signs and symptoms: Pertinent positives: non-productive cough. Severity of symptoms: At their worst the symptoms were moderate in the emergency department the symptoms are unchanged. It is unknown whether or not the patient has had similar symptoms in the past, Mom with similar s/s this week, dx with bronchitis. The patient has not recently seen a physician. 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 - Social history:: Smoking status: Patient/guardian denies using tobacco. - Ebola Screening: : No symptoms or risks identified at this time. ROS: 17:23 Eyes: Negative for injury, pain, redness, and discharge. snw 17:23 Neck: Negative for injury, pain, and swelling. 17:23 Cardiovascular: Negative for chest pain, palpitations, and edema. 17:23 Abdomen/GI: Negative for abdominal pain, nausea, vomiting, diarrhea, and constipation, Back: Negative for injury and pain, : Negative for injury, bleeding, discharge, and swelling, MS/Extremity: Negative for injury and deformity, Skin: Negative for injury, rash, and discoloration, Neuro: Negative for headache, weakness, numbness, tingling, and seizure. 17:23 Constitutional: Positive for chills. 17:23 ENT: Positive for ear pain. 17:23 Respiratory: Positive for cough, wheezing, inspiratory, expiratory. Exam: 17:15 Constitutional: This is a well developed, well nourished patient who is awake, alert, snw and in no acute distress. Head/Face: Normocephalic, atraumatic. Eyes: Pupils equal round and reactive to light, extra-ocular motions intact. Lids and lashes normal. Conjunctiva and sclera are non-icteric and not injected. Cornea within normal limits. Periorbital areas with no swelling, redness, or edema. 17:15 Neck: Trachea midline, no thyromegaly or masses palpated, and no cervical lymphadenopathy. Supple, full range of motion without nuchal rigidity, or vertebral point tenderness. No Meningismus. Chest/axilla: Normal chest wall appearance and motion. Nontender with no deformity. No lesions are appreciated. 17:15 Abdomen/GI: Soft, non-tender, with normal bowel sounds. No distension or tympany. No guarding or rebound. No evidence of tenderness throughout. Back: No spinal tenderness. No costovertebral tenderness. Full range of motion. Skin: Warm, dry with normal turgor. Normal color with no rashes, no lesions, and no evidence of cellulitis. MS/ Extremity: Pulses equal, no cyanosis. Neurovascular intact. Full, normal range of motion. Neuro: Awake and alert, GCS 15, oriented to person, place, time, and situation. Cranial nerves II-XII grossly intact. Motor strength 5/5 in all extremities. Sensory grossly intact. Cerebellar exam normal. Normal gait. 17:15 ENT: Ear canal(s): are normal, TM's: erythema, that is moderate, on the left, Nose: is normal, Mouth: is normal, Posterior pharynx: is normal, Voice: is normal. 17:15 Cardiovascular: Rate: tachycardic, Rhythm: regular, Pulses: no pulse deficits are appreciated. 17:15 Respiratory: Respirations: shallow respirations, tachypnea, Breath sounds: wheezing: is heard diffusely. Vital Signs: 16:58 BP 126 / 50; Pulse 128; Resp 22; Temp 98.4; Pulse Ox 97% on R/A; Weight 86.18 kg; la1 Height 5 ft. 4 in. (162.56 cm); 17:13 BP 128 / 78; Pulse 106; Resp 20; Pulse Ox 100% on Nebulizer Mask; tl3 18:24 BP 116 / 83; Pulse 109; Resp 18; Pulse Ox 97% on R/A; tl3 19:00 BP 124 / 86; Pulse 98 MON; Resp 18 S; Pulse Ox 99% on R/A; rv 16:58 Body Mass Index 32.61 (86.18 kg, 162.56 cm) la1 MDM: 17:14 Patient medically screened. snw 18:34 Data reviewed: vital signs, nurses notes, radiologic studies. Data reviewed:. Data snw interpreted: Pulse oximetry: on room air is 96 %. Interpretation: acceptable. Counseling: I had a detailed discussion with the patient and/or guardian regarding: the historical points, exam findings, and any diagnostic results supporting the discharge/admit diagnosis, the need for outpatient follow up, to return to the emergency department if symptoms worsen or persist or if there are any questions or concerns that arise at home. Response to treatment: the patient's symptoms have markedly improved after treatment, and as a result, I will discharge patient. Administered Medications: 17:10 Drug: Albuterol - atroVENT (3:1) (2.5 mg - 0.5 mg) 3 ml Route: Nebulizer; tl3 18:25 Follow up: Response: Marked relief of symptoms tl3 17:16 Drug: Augmentin 875 mg Route: PO; tl3 18:26 Follow up: Response: No adverse reaction tl3 17:16 Drug: predniSONE 40 mg Route: PO; tl3 18:26 Follow up: Response: No adverse reaction tl3 17:16 Drug: Pepcid 20 mg Route: PO; tl3 18:26 Follow up: Response: No adverse reaction tl3 18:37 Drug: Tussionex Pennkinetic ER 5 ml Route: PO; tl3 19:01 Follow up: Response: Marked relief of symptoms rv Disposition: 04/13/18 18:35 Discharged to Home. Impression: Unspecified asthma with (acute) exacerbation, Acute serous otitis media. - Condition is Stable. - Discharge Instructions: Asthma, Adult, Form - Asthma Action Plan, Adult. - Prescriptions for Augmentin 875- 125 mg Oral Tablet - take 1 tablet by ORAL route every 12 hours for 10 days; 20 tablet. Albuterol Sulfate 2.5 mg /3 mL (0.083 %) Inhalation Solution for Nebulization - inhale 1 unit by NEBULIZATION route every 8 hours As needed; 1 box. Prednisone 20 mg Oral Tablet - take 2 tablet by ORAL route once daily for 5 days; 10 tablet. Albuterol Sulfate 90 mcg/actuation - inhale 1-2 puff by INHALATION route every 4-6 hours; 1 Inhaler. Pepcid 20 mg Oral Tablet - take 1 tablet by ORAL route once daily; 20 tablet. - Medication Reconciliation Form, Thank You Letter, Antibiotic Education, Prescription Opioid Use form. - Follow up: Private Physician; When: 2 - 3 days; Reason: Recheck today's complaints, Continuance of care, Re-evaluation by your physician. Follow up: Emergency Department; When: As needed; Reason: Worsening of condition. Addendum: 04/24/2018 15:42 Co-signature as Attending Physician, Chapin Castañeda MD Available for consultation at p s1 all times. . Signatures: Janine Givens, MARGARITO-C LABELER-Csnw Raj Voss RN RN la1 Chapin Castañeda MD MD ps1 Roxana Juna RN RN tl3 Mynor Arthur, RN RN rv Corrections: (The following items were deleted from the chart) 04/13 19:02 18:35 04/13/2018 18:35 Discharged to Home. Impression: Unspecified asthma with (acute) rv exacerbation; Acute serous otitis media. Condition is Stable. Forms are Medication Reconciliation Form, Thank You Letter, Antibiotic Education, Prescription Opioid Use. Follow up: Private Physician; When: 2 - 3 days; Reason: Recheck today's complaints, Continuance of care, Re-evaluation by your physician. Follow up: Emergency Department; When: As needed; Reason: Worsening of condition. snw
--- NOTE | 2018-04-13 18:36 | ER ---
Nurse's Notes [facility] Name: Karen Castle Age: 23 yrs Sex: Female : 1995 Arrival Date: 04/13/2018 Time: 16:53 Bed 26 Private MD: None, None Diagnosis: Unspecified asthma with (acute) exacerbation;Acute serous otitis media Presentation: 04/13 16:57 Presenting complaint: Patient states: I have been sick for a couple days and yesterday la1 it all just moved in to my chest, I have asthma and am wheezing really bad and my nebs are not helping. Transition of care: patient was not received from another setting of care. Onset of symptoms was April 13, 2018. Risk Assessment: Do you want to hurt yourself or someone else? Patient reports no desire to harm self or others. Initial Sepsis Screen: Does the patient meet any 2 criteria? No. Patient's initial sepsis screen is negative. Does the patient have a suspected source of infection? No. Patient's initial sepsis screen is negative. Care prior to arrival: None. 16:57 Method Of Arrival: Ambulatory la1 16:57 Acuity: MOHIT 3 la1 Triage Assessment: 18:27 General: Appears uncomfortable, well groomed, well developed, well nourished, Behavior tl3 is cooperative, appropriate for age. Respiratory: Reports shortness of breath at rest Onset: The symptoms/episode began/occurred yesterday, the patient has moderate shortness of breath. 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 - Social history:: Smoking status: Patient/guardian denies using tobacco. - Ebola Screening: : No symptoms or risks identified at this time. Screenin:13 Abuse screen: Denies threats or abuse. Nutritional screening: No deficits noted. tl3 Tuberculosis screening: No symptoms or risk factors identified. Fall Risk None identified. Assessment: 17:13 General: Appears uncomfortable, well groomed, well developed, well nourished, Behavior tl3 is calm, cooperative, appropriate for age. Pain: Complains of pain in chest. Neuro: Level of Consciousness is awake, alert, obeys commands, Oriented to person, place, time, situation, Appropriate for age. Cardiovascular: Heart tones S1 S2 present Patient's skin is warm and dry. Rhythm is regular. Respiratory: Airway is patent Respiratory effort is even, labored, Respiratory pattern is regular, symmetrical, Breath sounds are coarse bilaterally. Breath sounds with wheezes in right middle lobe, right lower lobe and left posterior lower lobe. GI: No signs and/or symptoms were reported involving the gastrointestinal system. : No signs and/or symptoms were reported regarding the genitourinary system. EENT:. 18:24 Reassessment: No changes from previously documented assessment. Patient and/or family tl3 updated on plan of care and expected duration. Pain level reassessed. Patient is alert, oriented x 3, equal unlabored respirations, skin warm/dry/pink. Vital Signs: 16:58 BP 126 / 50; Pulse 128; Resp 22; Temp 98.4; Pulse Ox 97% on R/A; Weight 86.18 kg; la1 Height 5 ft. 4 in. (162.56 cm); 17:13 BP 128 / 78; Pulse 106; Resp 20; Pulse Ox 100% on Nebulizer Mask; tl3 18:24 BP 116 / 83; Pulse 109; Resp 18; Pulse Ox 97% on R/A; tl3 19:00 BP 124 / 86; Pulse 98 MON; Resp 18 S; Pulse Ox 99% on R/A; rv 16:58 Body Mass Index 32.61 (86.18 kg, 162.56 cm) la1 ED Course: 16:53 Patient arrived in ED. mr 16:53 None, None is Private Physician. mr 16:58 Triage completed. la1 16:59 Arm band placed on right wrist. la1 17:06 Roxana Juan RN is Primary Nurse. tl3 17:12 Janine Givens FNP-C [facility]. snw 17:12 Chapin Castañeda MD is Attending Physician. snw 17:13 Patient has correct armband on for positive identification. Bed in low position. Call tl3 light in reach. Side rails up X 1. Adult w/ patient. Pulse ox on. NIBP on. 17:13 No provider procedures requiring assistance completed. Patient did not have IV access tl3 during this emergency room visit. Administered Medications: 17:10 Drug: Albuterol - atroVENT (3:1) (2.5 mg - 0.5 mg) 3 ml Route: Nebulizer; tl3 18:25 Follow up: Response: Marked relief of symptoms tl3 17:16 Drug: Augmentin 875 mg Route: PO; tl3 18:26 Follow up: Response: No adverse reaction tl3 17:16 Drug: predniSONE 40 mg Route: PO; tl3 18:26 Follow up: Response: No adverse reaction tl3 17:16 Drug: Pepcid 20 mg Route: PO; tl3 18:26 Follow up: Response: No adverse reaction tl3 18:37 Drug: Tussionex Pennkinetic ER 5 ml Route: PO; tl3 19:01 Follow up: Response: Marked relief of symptoms rv Outcome: 18:35 Discharge ordered by . taty 19:01 Discharged to home ambulatory. rv 19:01 Condition: good 19:01 Discharge instructions given to patient, family, Instructed on discharge instructions, follow up and referral plans. medication usage, Demonstrated understanding of instructions, follow-up care, medications, Prescriptions given X 5 19:02 Patient left the ED. rv Signatures: Janine Givens, [employer]GR[employer]-Jane Arriaga Lee, RN RN la1 Roxana Juan RN RN tl3 Mynor Arthur RN RN rv
[2018-04-13] MEDS ORDERED: HYDROCODONE/CHLORPHEN 5 ML/OSYR ONE (18:46)
== END 2018-04-13 19:02 | disposition home or self-care (01) ==
LOC: ER 16:50
DX: J45.901 Unspecified asthma with (acute) exacerbation (principal); H65.02 Acute serous otitis media, left ear; F41.9 Anxiety disorder, unspecified; F32.9 Major depressive disorder, single episode, unspecified; Z79.899 Other long term (current) drug therapy
CPT/HCPCS: 94640; 99284; J7512